=== PATIENT | female | born 1930 | race Caucasian/White ===

== ENCOUNTER 2019-04-02 22:14 | Emergency (ER) | payer MEDICARE, OTHER ==
--- NOTE | 2019-04-02 22:26 | ED ---
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 The patient states she was walking into her bedroom when she fell down on her carpet and landed on her left side. She states she was initially not walking properly. She states she was unable to lift her legs high enough to walk and when her legs collided due to this she fell. She states she normally has a difficult time ambulating. Now she reports pain in her left LLE. The patient rates her pain 5/10 in severity. - History of Current Complaint Chief Complaint: EDFall Stated Complaint: "FALL PER PT" Time Seen by Provider: 04/02/19 22:23 Hx Obtained From: Patient Loss of Consciousness: no loss of consciousness Onset/Duration: Started Hours Ago Onset of Pain: Hours Pain Intensity: 5 Pain Scale Used: 0-10 Numeric Location: Extremities - Allergy/Home Medications Allergies/Adverse Reactions: Allergies Allergy/AdvReac Type Severity Reaction Status Date / Time CHERRIES Allergy Hives Uncoded 04/02/19 22:19 Home Medications: Home Medications Acetaminophen [Tylophen] 1,000 mg PO Q6HR 04/02/19 [History Confirmed 04/02/19] Cholecalciferol (Vitamin D3) [Vitamin D3] 1,000 unit PO DAILY 04/02/19 [History Confirmed 04/02/19] PMH/Surg Hx/FS Hx/Imm Hx Endocrine/Hematology History: Denies: Hx Diabetes, Hx Unexplained Bleeding Cardiovascular History: Reports: Hx Congenital Heart Disease, Hx Coronary Artery Disease, Hx Deep Vein Thrombosis - 2009 POST SURGERY, Hx Hypertension, Hx Valvular Heart Disease, Other Cardiovascular Problems/Disorders - Aortic Regurgitation, Mitral Regurgitation Denies: Hx Aneurysm, Hx Angina, Hx Angioplasty, Hx Auto Implanted Cardiovert Defib, Hx Cardiac Arrest, Hx Cardiomegaly, Hx Congestive Heart Failure, Hx Hypercholesterolemia, Hx Hypotension, Hx Pacemaker/ICD, Hx Peripheral Vascular Disease, Hx Rheumatic Fever, Hx Syncope GI History: Reports: Hx Gastroesophageal Reflux Disease Denies: Hx Cirrhosis, Hx Crohn's Disease, Hx Diverticulosis, Hx Gall Bladder Disease, Hx Gastrointestinal Bleed, Hx Hiatal Hernia, Hx Irritable Bowel, Hx Jaundice, Hx Obstructive Bowel, Hx Ileostomy, Hx Pyloric Stenosis, Hx Ulcer, Other GI Disorders Musculoskeletal History: Reports: Hx Arthritis - EVERYWHERE, Hx Back Problems - Chronic back pain, Hx Orthopedic Injury - BROKE HIP[, Hx Osteoporosis - THRU OUT , Other Musculoskeletal History - LEFT HIP AND LEFT KNEE SURGERY- DVT POST HIP SURGERY 2008 Denies: Hx Bursitis, Hx Congenital Bone Abnormalities, Hx Fibromyalgia, Hx Gout, Hx Scoliosis, Hx Tendonitis Sensory History: Reports: Hx Cataracts, Hx Contacts or Glasses, Hx Hearing Aid, Hx Hearing Problem Denies: Hx Eye Injury, Hx Eye Prosthesis, Hx Glaucoma, Hx Macular Degeneration, Hx Vision Problem, Hx Deafness, Other Sensory Impairments Opthamlomology History: Reports: Hx Cataracts, Hx Contacts or Glasses Denies: Hx Eye Injury, Hx Eye Prosthesis, Hx Glaucoma, Hx Macular Degeneration, Hx Vision Problem, Other Sensory Impairments Neurological History: Denies: Hx Dementia, Hx Developmental Delay, Hx Headaches, Hx Migraine, Hx Seizures, Hx Spinal Cord Injury, Hx Transient Ischemic Attacks (TIA), Other Neuro Impairments/Disorders - Surgical History Surgery Procedure, Year, and Place: LEFT HIP, CARDIAC aortic valve replacement, appendectomy, Hx Anesthesia Reactions: No Infectious Disease History: No Infectious Disease History: Reports: Hx Shingles - ten years ago Denies: Hx Clostridium Difficile, Hx Hepatitis, Hx Human Immunodeficiency Virus (HIV), Hx Tuberculosis, Traveled Outside the [place] in Last 30 Days - Family History Known Family History: Negative: Diabetes - Social History Alcohol Use: Rare Substance Use Type: Reports: None Hx Tobacco Use: Yes Smoking Status (MU): Former Smoker Have You Smoked in the Last Year: No Review of Systems Negative: Fever Positive: Other - LLE pain. All Other Systems Reviewed And Are Negative: Yes Physical Exam - Summary Physical Exam Summary: VITAL SIGNS: Reviewed. GENERAL: Patient is a well-developed and nourished FEMALE who is lying comfortable in the stretcher. Patient is not in any acute respiratory distress. HEAD AND FACE: No signs of trauma. No ecchymosis, hematomas or skull depressions. No sinus tenderness. EYES: PERRLA, EOMI x 2, No injected conjunctiva, no nystagmus. EARS: Hearing grossly intact. Ear canals and tympanic membranes are within normal limits. MOUTH: Oropharynx within normal limits. NECK: Supple, trachea is midline, no adenopathy, no JVD, no carotid bruit, no c- spine tenderness, neck with full ROM. CHEST: Symmetric, no tenderness at palpation LUNGS: Clear to auscultation bilaterally. No wheezing or crackles. CVS: Regular rate and rhythm, S1 and S2 present, no murmurs or gallops appreciated. ABDOMEN: Soft, non-tender. No signs of distention. No rebound no guarding, and no masses palpated. Bowel sounds are normal. EXTREMITIES: FROM in all major joints, no edema, no cyanosis or clubbing. Tenderness over the left upper thigh. NEURO: Alert and oriented x 3. No acute neurological deficits. Speech is normal and follows commands. SKIN: Dry and warm Triage Information Reviewed: Yes Vital Signs On Initial Exam: Initial Vitals Temp Pulse Resp BP Pulse Ox 98.5 F 76 16 172/72 97 04/02/19 22:17 04/02/19 22:17 04/02/19 22:17 04/02/19 22:17 04/02/19 22:17 Vital Signs Reviewed: Yes Diagnostics - Vital Signs Vital Signs Temp Pulse Resp BP Pulse Ox 04/02/19 22:17 98.5 F 76 16 172/72 97 - Laboratory Lab Statement: Any lab studies that have been ordered have been reviewed, and results considered in the medical decision making process. - Radiology Hip/Pelvis XR Radiology Interpretation Completed By: ED Physician Summary of Radiographic Findings: No fractures seen. Pending offical radiologist report. Femur XR Radiology Interpretation Completed By: ED Physician Summary of Radiographic Findings: No fracture seen. Pending official radiologist report. 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 XRs on left femur, hip, and pelvis revealed no fractures. Patient ambulated with walker. Patient states she does not want a prescription for pain. A plan for discharge was discussed with the patient and she was agreeable with this plan. - Diagnoses Provider Diagnoses: Left hip pain Discharge - Sign-Out/Discharge Documenting (check all that apply): Patient Departure - Discharge Patient Received Moderate/Deep Sedation with Procedure: No - Discharge Plan Condition: Stable Disposition: HOME Patient Education Materials: Hip Pain (ED) Referrals: Chloe Blevins MD [Primary Care Provider] - Additional Instructions: Return to ED with any new or worsening symptoms. - Attestation Statements Document Initiated by Scribe: Yes Documenting Scribe: Kyler Rai Provider For Whom Scribe is Documenting (Include Credential): Obdulia Campoverde MD Scribe Attestation: Kyler Liu, scribed for Obdulia Campoverde MD on 04/03/19 at 0044. Status of Scribe Document: Ready
[2019-04-03 01:01] VITALS: BP 133/69
== END 2019-04-03 01:00 | disposition home or self-care (01) ==
LOC: ED 22:14
DX: M25.552 Pain in left hip (principal); I25.10 Atherosclerotic heart disease of native coronary artery without angina pectoris; Z87.891 Personal history of nicotine dependence; W19.XXXA Unspecified fall, initial encounter; S72.142S Displaced intertrochanteric fracture of left femur, sequela
CPT/HCPCS: 99283

== ENCOUNTER 2019-10-01 12:05 | Inpatient (IN) | payer MEDICARE, OTHER ==
[2019-10-01] MEDS ORDERED: HYDROcodone/ACETAMIN 5-325 MG* 1 TAB PO ONE (12:20)
--- NOTE | 2019-10-01 12:22 | ED ---
Back Pain - HPI Summary HPI Summary: This patient is an 89 year old female presenting to [facility] with a chief complaint of back pain after a fall. The patient states she fell three days ago and did not have lower back pain but only mild right-sided. She states she fell in the bathroom when she was trying to get dressed and fell backwards. She says she hit the tub with her right side. She states she is having difficulty walking , bending down, and putting socks on. The patient states she takes aspirin daily. - History of Current Complaint Chief Complaint: EDBackInjuryPain Stated Complaint: INJURIES FROM FALL PER SON Time Seen by Provider: 10/01/19 12:12 Hx Obtained From: Patient Onset/Duration: Lasting Hours Pain Intensity: 9 Pain Scale Used: 0-10 Numeric - Allergies/Home Medications Allergies/Adverse Reactions: Allergies Allergy/AdvReac Type Severity Reaction Status Date / Time CHERRIES Allergy Hives Uncoded 10/01/19 12:09 PMH/Surg Hx/FS Hx/Imm Hx Endocrine/Hematology History: Denies: Hx Diabetes, Hx Unexplained Bleeding Cardiovascular History: Reports: Hx Congenital Heart Disease, Hx Coronary Artery Disease, Hx Deep Vein Thrombosis - 2010 POST SURGERY, Hx Hypertension, Hx Valvular Heart Disease, Other Cardiovascular Problems/Disorders - Aortic Regurgitation, Mitral Regurgitation Denies: Hx Aneurysm, Hx Angina, Hx Angioplasty, Hx Auto Implanted Cardiovert Defib, Hx Cardiac Arrest, Hx Cardiomegaly, Hx Congestive Heart Failure, Hx Hypercholesterolemia, Hx Hypotension, Hx Pacemaker/ICD, Hx Peripheral Vascular Disease, Hx Rheumatic Fever, Hx Syncope GI History: Reports: Hx Gastroesophageal Reflux Disease Denies: Hx Cirrhosis, Hx Crohn's Disease, Hx Diverticulosis, Hx Gall Bladder Disease, Hx Gastrointestinal Bleed, Hx Hiatal Hernia, Hx Irritable Bowel, Hx Jaundice, Hx Obstructive Bowel, Hx Ileostomy, Hx Pyloric Stenosis, Hx Ulcer, Other GI Disorders Musculoskeletal History: Reports: Hx Arthritis - EVERYWHERE, Hx Back Problems - Chronic back pain, Hx Orthopedic Injury - BROKE HIP[, Hx Osteoporosis - THRU OUT , Other Musculoskeletal History - LEFT HIP AND LEFT KNEE SURGERY- DVT POST HIP SURGERY 2008 Denies: Hx Bursitis, Hx Congenital Bone Abnormalities, Hx Fibromyalgia, Hx Gout, Hx Scoliosis, Hx Tendonitis Sensory History: Reports: Hx Cataracts, Hx Contacts or Glasses, Hx Hearing Aid, Hx Hearing Problem Denies: Hx Eye Injury, Hx Eye Prosthesis, Hx Glaucoma, Hx Macular Degeneration, Hx Vision Problem, Hx Deafness, Other Sensory Impairments Opthamlomology History: Reports: Hx Cataracts, Hx Contacts or Glasses Denies: Hx Eye Injury, Hx Eye Prosthesis, Hx Glaucoma, Hx Macular Degeneration, Hx Vision Problem, Other Sensory Impairments Neurological History: Denies: Hx Dementia, Hx Developmental Delay, Hx Headaches, Hx Migraine, Hx Seizures, Hx Spinal Cord Injury, Hx Transient Ischemic Attacks (TIA), Other Neuro Impairments/Disorders - Surgical History Surgery Procedure, Year, and Place: LEFT HIP, CARDIAC aortic valve replacement, appendectomy, Hx Anesthesia Reactions: No Infectious Disease History: No Infectious Disease History: Reports: Hx Shingles - ten years ago Denies: Hx Clostridium Difficile, Hx Hepatitis, Hx Human Immunodeficiency Virus (HIV), Hx Tuberculosis, Traveled Outside the [place] in Last 30 Days - Family History Known Family History: Negative: Diabetes - Social History Alcohol Use: Rare Substance Use Type: Reports: None Hx Tobacco Use: Yes Smoking Status (MU): Former Smoker Have You Smoked in the Last Year: No Review of Systems Negative: Fever Positive: Other - Back pain All Other Systems Reviewed And Are Negative: Yes Physical Exam - Summary Physical Exam Summary: Appearance: The patient is well-nourished in no acute distress and in no acute pain. Skin: The skin is warm and dry, and skin color reflects adequate perfusion. HEENT: The head is normocephalic and atraumatic. The pupils are equal and reactive. The conjunctivae are clear and without drainage. Nares are patent and without drainage. Mouth reveals moist mucous membranes, and the throat is without erythema and exudate. The external ears are intact. The ear canals are patent and without drainage. The tympanic membranes are intact. Neck: The neck is supple with full range of motion and non-tender. There are no carotid bruits. There is no neck vein distension. Respiratory: Chest is non-tender. Lungs are clear to auscultation and breath sounds are symmetrical and equal. Cardiovascular: Heart is regular rate and rhythm. There is no murmur or rub auscultated. There is no peripheral edema and pulses are symmetrical and equal. Abdomen: The abdomen is soft and non-tender. There are normal bowel sounds heard in all four quadrants and there is no organomegaly palpated. Musculoskeletal: There is no back tenderness noted. Extremities are non-tender with full range of motion. There is good capillary refill. There is no peripheral edema or calf tenderness elicited. Neurological: Patient is alert and oriented to person, place and time. The patient has symmetrical motor strength in all four extremities. Cranial nerves are grossly intact. Deep tendon reflexes are symmetrical and equal in all four extremities. Psychiatric: The patient has an appropriate affect and does not exhibit any anxiety or depression. Triage Information Reviewed: Yes Vital Signs On Initial Exam: Initial Vitals Temp Pulse Resp BP Pulse Ox 99.0 F 87 16 140/86 99 10/01/19 12:06 10/01/19 12:06 10/01/19 12:06 10/01/19 12:06 10/01/19 12:06 Vital Signs Reviewed: Yes Procedures - Sedation Patient Received Moderate/Deep Sedation with Procedure: No Diagnostics - Vital Signs Vital Signs Temp Pulse Resp BP Pulse Ox 10/01/19 12:06 99.0 F 87 16 140/86 99 - Laboratory Lab Statement: Any lab studies that have been ordered have been reviewed, and results considered in the medical decision making process. - CT Lumbar CT Interpretation Completed By: Radiologist Summary of CT Findings: 1. CT findings are consistent with L4 superior vertebral body compression frcature that is new since 03/23/2012 MRI. The posterior superior corner endplate of the vertebral body abuts the ventral spinal cord which might be exacerbating the patient's spinal stenosis at this level. If it will influence clinical management of this patient, MRI could be obtained for superior characterization. 2. 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 3. Infrarenal abdominal aortic aneurysm measuring 3.4 cm in diameter, increased slightly from 03/23/2012 MRI. ED Provider has reviewed this report. Back Pain Course/Dx - Course Course Of Treatment: Ms. Case fell 2 days ago in her bathtub and hurt her back. Over that time is gotten more and more painful now she's having difficulty with her activities of daily living. Neurologically she was intact here and CT revealed a new compression fracture with some retropulsed fragments. I spoke with Dr. Fine who recommended admission to the hospital service. I spoke with Dr. Brown. - Diagnoses Provider Diagnoses: Fracture of lumbar spine Discharge ED - Sign-Out/Discharge Documenting (check all that apply): Patient Departure - Admission, accepted by Dr. Brown, Hospitalist. - Discharge Plan Condition: Stable Disposition: ADMITTED TO [facility] - Billing Disposition and Condition Condition: STABLE Disposition: Admitted to [facility] - Attestation Statements Document Initiated by Romie: Yes Documenting Scribe: Kyler Rai Provider For Whom Romie is Documenting (Include Credential): Edgar Burrows MD Scribe Attestation: Kyler Liu, scribed for Edgar Burrows MD on 10/01/19 at 2056. Scribe Documentation Reviewed: Yes Provider Attestation: The documentation as recorded by the kishoreibKyler argueta accurately reflects the service I personally performed and the decisions made by me, Edgar Burrows MD Status of Scribe Document: Viewed
--- OUTSIDE RECORDS SUMMARY | 2019-10-01 12:24 | XMS REPORT | Continuity of Care Document ---
:1930 External Reference #:[id number] Author Name Chloe Blevins MD Address [address] [place] [address] Care Team Providers Name Role Phone Chloe Blevins MD FACP - Care Team Information Heat Plant Specialist [phone] Internal Medicine Yoana Cobb - Orthopaedic Care Team Information [facility] Specialist Surgery Raj Brothers MD - Orthopaedic Care Team Information Heat Plant Specialist [phone] Surgery Adelaide Penn MD - Cardiovascular Care Team Information [facility] [employer] Specialist Disease James Yang MD - Cardiovascular Care Team Information Heat Plant Specialist [phone] Disease Shruti Rizo M.D. - Pediatric Care Team Information Heat Plant Specialist [phone] Dermatology [facility] Care Team Information [facility] Specialist Cty - Home Health Problems Active Problems Provider Date Degenerative joint disease involving multiple Chloe Blevins MD Onset: joints Osteoporosis Chloe Blevins MD Onset: 05/14/2009 Spinal stenosis of lumbar region Chloe Blevins MD Onset: 04/07/2012 Heart valve replacement Chloe Blevins MD Onset: 09/14/2015 Hyperparathyroidism Chloe Blevins MD Onset: 11/04/2016 Social History Type Date Description Comments Sex Unknown Tobacco Use Start: Unknown End: Former Cigarette Smoker Unknown Smoking Status Reviewed: 11/16/60 Former Cigarette Smoker ETOH Use 2000 Has consumed alcohol in the past Recreational Drug Use Never Used Drugs Tobacco Use Start: Unknown End: Patient is a former smoker Unknown Exercise Type/Frequency Does not exercise Exercise Limitations Back Pain Allergies, Adverse Reactions, Alerts Description No Known Drug Allergies Medications Active Medications SIG Qnty Indications Ordering Provider Date Aspirin Take 1 tablet by I48.0 Chloe Morley 12/04/2015 325mg Tablets mouth daily for MD Gen treatment to prevent blood clotting Z79.01 Ramipril Take 1 Capsule By 30caps I10 Chloe Blevins, 08/27/2015 5mg Capsules Mouth Every Day For Left-Sided Heart Failure I42.9 Metoprolol Tartrate Take 1 Tablet By 60tabs I42.9 Chloe Blevins, 08/27 25mg Mouth Two Times MD Tablets Daily I48.0 Acetaminophen 1-2 by mouth three M15.0 Chloe Blevins, 02/09/2013 500mg Tablets times a day as MD needed Vitamin D3 1 po qd 733.00 Chloe Blevins, 10/08/2009 1000Unit Tablets Medications Administered in Office Medication SIG Qnty Indications Ordering Provider Date Inject/Drain Arthrocentesis Chloe Blevins MD 03/21/2014 Major Joint/Bursa/Ganglion Cyst Injection Immunizations CPT Code Status Date Vaccine Reaction Lot # [id number] Given 08/03/2019 Influenza Vaccine [id number] Quadrivalent Preser/Antibiotic Free Im Use 27734 Given 08/24/2018 Influenza Virus Vaccine, [id number] Quadrivalent (Cciiv4), Derived From Cell 00599 Given 07/28/2017 Influenza Vaccine Not Specified Administered Age 3 And Older 83203 Given 07/28/2017 Influenza Virus Vaccine Split [id number] Virus Use For Individual 3Yr Older 91380 Given 08/26/2016 Influenza Virus Split 3 Yrs [id number] And Above For Intramuscular Use 75078 Given 07/31/2015 Influenza Virus Split 3 Yrs [place] And Above For Intramuscular Use 00913 Given 07/31/2014 Influenza Virus Split 3 Yrs [id number] Flu Vacc And Above For Intramuscular Use 38116 Given 08/04/2013 Influenza Virus Split 3 Yrs FLU [id number] And Above For Intramuscular Use 65241 Given 08/11/2012 Influenza Virus Split 3 Yrs FLU [id number] And Above For Intramuscular Use 37491 Given 12/24/2011 Pneumococcal Vaccine 2Yrs Or PNEUMO [id number] Older 53151 Given 08/20/2011 Influenza Virus Split 3 Yrs FLU [id number] And Above For Intramuscular Use 40515 Given 10/09/2010 Tdap-Tetanus, Diphtheria TDAP [id number] Toxoids/Acellular Pertussis Vaccine 7+ 00044 Given 09/04/2010 Influenza Virus Split 3 Yrs FLU [id number] And Above For Intramuscular Use 69129 Given 09/04/2009 Influenza Virus Split 3 Yrs And Above For Intramuscular Use 75516 Given 12/05/2007 Influenza Virus Vaccine Split Virus Use For Individual 3Yr Older 62187 Given 03/19/2000 Pneumococcal Vaccine 2Yrs Or Older 06552 Given 03/19/2000 Tetanus Preservative Free For Use In Individuals 7 Yrs Or Older Vital Signs Date Vital Result Comment 08/03/2019 12:54pm Body Temperature 97.6 F O2 % BldC Oximetry 97 % Heart Rate 60 /min BP Systolic 140 mmHg BP Diastolic 80 mmHg BMI (Body Mass Index) 27.6 kg/m2 Weight 171.00 lb Height 66 inches 5'6" 02/23/2019 1:00pm Heart Rate 66 /min BP Systolic 135 mmHg BP Diastolic 80 mmHg Weight 167.00 lb Results Test Date Facility Test Result H/L Range Note CBC No Diff 07/25/2019 [facility] White Blood 6.6 10^3/uL Normal 3.5-10.8 [place] [address] Count [phone] Red Blood Count 4.59 10^6/uL Normal 3.70-4.87 Hemoglobin 13.3 g/dL Normal 12.0-16.0 Hematocrit 41 % Normal 35-47 Mean Corpuscular Volume 88 fL Normal 80-97 Mean Corpuscular Hemoglobin 29 pg Normal 27-31 Mean Corpuscular HGB Conc 33 g/dL Normal 31-36 Red Cell Distribution Width 15 % Normal 10-15 Platelet Count 671 10^3/uL High 150-450 Mean Platelet Volume 9.1 fL Normal 7.4-10.4 Comp Metabolic 07/25/2019 [facility] Sodium 140 mmol/L Normal 135-145 [place] [address] [phone] Potassium 5.0 mmol/L Normal 3.5-5.0 Chloride 108 mmol/L Normal 101-111 Co2 Carbon Dioxide 29 mmol/L Normal 22-32 Anion Gap 3 mmol/L Normal 2-11 Glucose 93 mg/dL Normal 70-100 Blood Urea Nitrogen 29 mg/dL High 6-24 Creatinine 0.95 mg/dL Normal 0.51-0.95 BUN/Creatinine Ratio 30.5 High 8-20 Calcium 11.0 mg/dL High 8.6-10.3 Total Protein 6.6 g/dL Normal 6.4-8.9 Albumin 4.1 g/dL Normal 3.2-5.2 Globulin 2.5 g/dL Normal 2-4 Albumin/Globulin Ratio 1.6 Normal 1-3 Total Bilirubin 0.60 mg/dL Normal 0.2-1.0 Alkaline Phosphatase 91 U/L Normal 34-104 Alt 12 U/L Normal 7-52 Ast 19 U/L Normal 13-39 Egfr Non- 55.6 >60 Egfr 67.3 >60 1 Pthi 07/25/2019 [facility] Calcium (PTH Intact) 10.9 mg/dL High 8.6-10.3 [place], [place] [id number] [phone] PTH Intact 96.9 pg/mL High 12-88 Xray 04/18/2019 [facility] Knee, Complete, 4 Or More Views, Mild OA [address] [place] [address] [phone] Tibia & Fibula, Two Views, LT No fracture Basic Metabolic 02/15/2019 [facility] Sodium 141 mmol/L Normal 135-145 [place] [address] [phone] Potassium 4.9 mmol/L Normal 3.5-5.0 Chloride 107 mmol/L Normal 101-111 Co2 Carbon Dioxide 28 mmol/L Normal 22-32 Anion Gap 6 mmol/L Normal 2-11 Glucose 89 mg/dL Normal 70-100 Blood Urea Nitrogen 25 mg/dL High 6-24 Creatinine 0.93 mg/dL Normal 0.51-0.95 BUN/Creatinine Ratio 26.9 High 8-20 Calcium 10.9 mg/dL High 8.6-10.3 Egfr Non- 57.2 >60 Egfr 69.2 >60 2 Pthi 02/15/2019 [facility] Calcium (PTH Intact) 10.9 mg/dL High 8.6-10.3 [place] [address] [phone] PTH Intact 85.7 pg/mL Normal 12-88 1 Because ethnic data is not always readily available, this report includes an eGFR for both -Americans and non- Americans. The National Kidney Disease Education Program (NKDEP) does not endorse the use of the MDRD equation for patients that are not between the ages of 18 and 70, are , have extremes of body size, muscle mass, or nutritional status, or are non- or non-. According to the National Kidney Foundation, irrespective of diagnosis, the stage of the disease is based on the level of kidney function: Stage Description GFR(mL/min/1.73 m(2)) 1 Kidney damage with normal or decreased GFR 90 2 Kidney damage with mild decrease in GFR 60-89 3 Moderate decrease in GFR 30-59 4 Severe decrease in GFR 15-29 5 Kidney failure <15 (or dialysis) 2 Because ethnic data is not always readily available, this report includes an eGFR for both -Americans and non- Americans. The National Kidney Disease Education Program (NKDEP) does not endorse the use of the MDRD equation for patients that are not between the ages of 18 and 70, are , have extremes of body size, muscle mass, or nutritional status, or are non- or non-. According to the National Kidney Foundation, irrespective of diagnosis, the stage of the disease is based on the level of kidney function: Stage Description GFR(mL/min/1.73 m(2)) 1 Kidney damage with normal or decreased GFR 90 2 Kidney damage with mild decrease in GFR 60-89 3 Moderate decrease in GFR 30-59 4 Severe decrease in GFR 15-29 5 Kidney failure <15 (or dialysis) Procedures Date Code Description Status 09/23/2010 255085241 Bone Mineral Density Test Completed 05/04/2009 [id number] Mammogram Completed 04/27/2009 [id number] Bone Mineral Density Test Completed 01/27/2008 [id number] Mammogram Completed 09/30/2006 [id number] Mammogram Completed 09/30/2005 [id number] Mammogram Completed Medical Devices Description No Information Available Encounters Type Date Location Provider Dx Diagnosis Office Visit 08/03/2019 Main Office Corona A Wattoo, Z00.01 Encounter for 1:00p general adult medical exam w abnormal findings M48.061 Spinal stenosis, lumbar region without neurogenic merry M15.0 Primary generalized (osteo)arthritis E21.3 Hyperparathyroidism, unspecified I10 Essential (primary) hypertension Office Visit 04/18/2019 1:00p Main Office Chloe Blevins, M25.562 Pain in left MD knee M79.662 Pain in left lower leg M15.0 Primary generalized (osteo)arthritis Z91.81 History of falling Office Visit 02/23/2019 1:00p Main Office Chloe Sheehan0 Essential ( primary) MD Gen hypertension M15.0 Primary generalized (osteo)arthritis M48.061 Spinal stenosis, lumbar region without neurogenic merry E21.3 Hyperparathyroidism, unspecified Assessments Date Code Description Provider 08/03/2019 Z00.01 Encounter for general adult medical Chloe Blevins MD examination with abnormal findings 08/03/2019 M48.061 Spinal stenosis, lumbar region without Chloe Blevins MD neurogenic claudicati 08/03/2019 M15.0 Primary generalized (osteo)arthritis Chloe Blevins MD 08/03/2019 E21.3 Hyperparathyroidism, unspecified Chloe Blevins MD 08/03/2019 I10 Essential (primary) hypertension Chloe Blevins MD 04/18/2019 M25.562 Pain in left knee Chloe Blevins MD 04/18/2019 M79.662 Pain in left lower leg Chloe Blevins MD 04/18/2019 M15.0 Primary generalized (osteo)arthritis Chloe Blevins MD 04/18/2019 Z91.81 History of falling Chloe Blevins MD 02/23/2019 I10 Essential (primary) hypertension Chloe Blevins MD 02/23/2019 M15.0 Primary generalized (osteo)arthritis Chloe Blevins MD 02/23/2019 M48.061 Spinal stenosis, lumbar region without Chloe Blevins MD neurogenic claudicati 02/23/2019 E21.3 Hyperparathyroidism, unspecified Corona A Wattoo, MD Plan of Treatment Future Appointment(s):02/01/2020 1:00 pm - Chloe Blevins MD at Main [id number]/03/2019 - Chloe Blevins MDZ00.01 Encounter for general adult medical examination with abnormal findingsComments:Age, sex and risk appropriate preventive care recommendations discussed with patient. Physical findings discussed in detail.Patient verbalized understanding. Fall prevention d/w in detail. Stable and asymptomatic.Medications related potential side effects, general precautions, follow up recommendations discussed with patient in detail. Patient verbalized understanding.M48.061 Spinal stenosis, lumbar region without neurogenic twuezhemdpC53.0 Primary generalized (osteo)wupzczalaZ07.3 Hyperparathyroidism, ewjdkuqqnjoL17 Essential (primary) hypertension Functional Status Functional Condition Comment Date Status Standard cane is used with the right hand to ambulate 04/25/2009 Active Hearing Aid in Both ears Active Mental Status Description No Information Available Referrals Refer to Reason for Referral Status Appt Date [facility] Closed [address] [place] [address] [phone]
[2019-10-01] MEDS ORDERED: Magnesium Hydroxide LIQ* 30 ML UDC PO PRN (16:42)
[2019-10-01] MEDS ORDERED: oxyCODONE/Acetamin 5/325 MG* TAB PO PRN (16:42)
[2019-10-01] MEDS ORDERED: Acetaminophen TAB* 325 MG PO PRN (16:47)
--- NOTE | 2019-10-01 19:17 | HP ---
CC: Dr. Blevins; Dr. Adelaide Penn; Dr. Fine * ADMISSION HISTORY AND PHYSICAL: DATE OF ADMISSION: 10/01/19 PRIMARY CARE PROVIDER: Dr. Blevins. PRIMARY INSECTICIDE MAKER: Dr. Adelaide Penn. NEUROSURGERY: Dr. Fine. ATTENDING FOR THIS ADMISSION: Dr. Jesse Brown.* (DICTATED BY KAVON GUALLPA NP) CHIEF COMPLAINT: Fall with intractable back pain and inability to ambulate. HISTORY OF PRESENT ILLNESS: Ms. Case is a very pleasant 89-year-old female with history of arthritis, aortic valve replacement and hypertension that presents to the emergency department today with complaints of fall in her bathroom 3 days ago. The patient and her son state that 3 days ago she was in bathroom and getting dressed, she was trying to put on the turtleneck and somehow got tied up in her shirt. She became unbalanced and fell backwards on to a bath chair that was in the tub, striking her lower back and lateral portion of her lumbar spine on the right side. The patient at that time needed some assistance getting back up. Her son was available to provide this assistance. She does not have any loss of consciousness. Did not strike her head. Did not have any difficulty ambulating at that time. Did not complain of any numbness, tingling or any other neurologic deficits after her fall. The patient, with some assistance from her son, was able to finish getting dressed and was seated shortly thereafter, took some Tylenol and did not have any further complaints that day. However, progressively over the last 3 days, she began to have intractable pain across the lower back and radiating down her legs. Normally, the patient can ambulate with the walker without difficulty; however, she has gotten to the point where she cannot ambulate at all. She is having difficulty bearing weight. She could not change positions. She says in particular getting up out of a chair to standing position is impossible and it has gotten to the point where the patient now cannot ambulate at all without being in excruciating pain. The patient was brought to the emergency department for evaluation where she underwent imaging. In the ED, she did receive a CT of the lumbar spine. Lumbar spine imaging does show a new fracture of the L4 vertebra. There is a compression fracture which is new of the vertebral body at L4. The posterior superior corner endplate of the vertebral body abuts the ventral spinal cord which appears to be exacerbating the patient's preexisting spinal stenosis at this level. The patient does appear to have some preexisting degenerative disk disease and spinal stenosis. There is noted multilevel spinal stenosis and broad- based intervertebral disk protrusion and facet arthropathy and thickening most severe at L3-L4. It does appear that this current fracture is in the specific area where her current stenotic disease is located. The patient did receive narcotic pain medication in the emergency department and ED has reached out to Neurosurgery who recommends MRI and bedrest. Hospitalists had been requested to evaluate the patient for admission. PAST MEDICAL HISTORY: Significant for aortic valvular disease, osteoarthritis, history of DVT and hypertension. PAST SURGICAL HISTORY: Significant for cholecystectomy; hip arthroplasty; knee surgery; aortic valve replacement x2 in 2011 and in 2014, this is bioprosthetic valve. HOME MEDICATIONS: Include: 1. Ramipril 5 mg q.h.s. 2. Metoprolol tartrate 25 mg b.i.d. 3. Vitamin D3 1000 units daily. 4. Aspirin 325 mg p.o. daily. 5. Tylenol 500 mg p.o. p.r.n. pain. ALLERGIES: The patient has no known drug allergies. 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 FAMILY HISTORY: Negative for diabetes or heart disease. Negative for any cancers or other chronic diseases. SOCIAL HISTORY: The patient has a very remote history of smoking greater than 60 years ago. She drinks wine only occasionally. Denies any illicit drug use and does live with her son, Rayray Britton, phone number is [phone] who is her healthcare proxy. CODE STATUS: She is a full code. REVIEW OF SYSTEMS: The patient states while lying still, she is not in pain; however, with any movement or ambulation, she does have an 8/10 pain. She is unable to ambulate at this time. She denies any fever or chills. No dizziness. No acute shortness of breath or chest pain. No nausea. No vomiting. No abdominal pain. No urinary complaints. She does endorse some radiating pain down the legs, but no further constitutional complaints. PHYSICAL EXAMINATION GENERAL: The patient is well appearing, well nourished, in no acute distress. VITAL SIGNS: Blood pressure 156/68, heart rate 63, respiratory rate 16, O2 saturation 97% on room air, temperature of 99.0. HEENT: The patient is atraumatic, normocephalic. PERRLA. Nonicteric sclerae. Oral mucosa is moist. Tongue is midline. NECK: Supple, nontender. No JVD noted. No carotid bruits auscultated. LUNGS: Clear bilaterally to auscultation with no wheezing, rhonchi, or rales. CARDIOVASCULAR: S1, S2 present. No murmurs, gallops, or rubs noted. Rate and rhythm are regular. ABDOMEN: Soft, nontender, nondistended. Positive bowel sounds in all 4 quadrants. : Deferred. MUSCULOSKELETAL: There is no clubbing, no cyanosis. She does have bilateral lower extremity and ankle edema. +1 nonpitting. She does have some tenderness of the lower extremities to palpation. She has +2 distal pulses palpable. Full range of motion. Gross motor and sensation are intact. NEUROLOGIC: Grossly intact with no focal deficits. PSYCHIATRIC: She is cooperative and appropriate. DIAGNOSTIC STUDIES/LAB DATA: No laboratories are currently available. Imaging: CAT scan of the lumbar spine as noted in the body of this document above. IMPRESSION: Ms. Case is an 89-year-old female patient with minimal medical history that presents today after a fall, found to have an acute compression fracture of the L4 vertebral body with retropulsion. PLAN: The patient has been admitted to observation. DIAGNOSES: 1. Acute L4 compression fracture with retropulsion. Neurosurgery has been contacted by Dr. Burrows in the emergency department. Dr. Fine recommends MRI and bedrest. At this time, it is unclear if the retropulsion will cause any further instability. We will have to obtain the MRI to determine if the patient would be a surgical candidate or not, this has been explained to the patient and they are in agreement. In the meantime, the patient should have bedrest. I will order Percocet 1 tablet q.4 hours as needed for pain. She should be using a bedpan for toileting. I will order PT and OT; however, this will not be able to be completed until after her MRI and her evaluation by Neurosurgery. I will order basic labs, CBC and a BMP to ensure she has no electrolyte disturbances or anemia. 2. History of hypertension. She is normotensive, on ramipril and metoprolol, these will be continued. 3. History of aortic valve replacement. The patient follows with Dr. Penn. She is not currently complaining of any chest pains or any respiratory complaints. She could follow up with Dr. Penn as an outpatient. If she would need surgical intervention, we would obtain cardiology consult with Dr. Penn or one of her partners. 4. History of arthritis. The patient normally takes Tylenol. She cannot take either Tylenol or narcotic pain medication for her acute pain at this time. 5. Fluids, electrolytes, and nutrition: The patient can have a heart healthy diet, caffeine okay as tolerated. 6. DVT prophylaxis: The patient is high risk with a score of 4. She has had deep vein thrombosis in the past after having hip surgery. Normally, she takes aspirin 324 mg daily, this will be held at this time and she will receive Lovenox 40 mg subcu q.24 hours, first dose to begin this evening. Again, she is high risk for DVT given current status and bedrest. 7. Code status: Full code. 8. Disposition: The patient is admitted to observation. The rest of the patient's course will be determined by further diagnostics, laboratories, and any other input from other providers as warranted during this admission. TIME SPENT: 60 minutes on admission planning, greater than 50% has been spent at the bedside and [id number]-[id number] physical examination of the patient and also developing plan of care with the patient and other providers involved in this patient's plan of care. KAVON GUALLPA NP [id number]/[facility] #: [id number] QUIQUE
[2019-10-01] MEDS: Metoprolol Tartrate TAB* 25 MG PO SCH (19:43)
[2019-10-01] MEDS: Docusate CAP* 100 MG PO SCH (19:43)
[2019-10-01] MEDS: Ramipril CAP* 5 MG PO SCH (19:43)
[2019-10-01] MEDS: Enoxaparin(*) 40 MG/0.4 ML SYR SUBCUT SCH (19:43)
[2019-10-02 05:27] LABS: ABS Basophils 0.1 10^3/ul (0-0.2); ABS Eosinophils 0.1 10^3/ul (0-0.6); ABS Lymphocytes 2.2 10^3/ul (1.0-4.8); ABS Monocytes 0.7 10^3/ul (0-0.8); ABS Neutrophils 3.1 10^3/ul (1.5-7.7); Eosinophil % 1.6 %; Hematocrit 36 % (35-47); Lymphocyte % 35.7 %; Mean Corpuscular HGB Conc 34 g/dL (31-36); Mean Corpuscular Hemoglobin 29 pg (27-31); Mean Corpuscular Volume 87 fL (80-97); Mean Platelet Volume 8.2 fL (7.4-10.4); Platelet Count 730 10^3/uL (150-450); Red Blood Count 4.08 10^6 /uL (3.70-4.87); Red Cell Distribution Width 15 % (10-15); White Blood Count 6.2 10^3/uL (3.5-10.8)
[2019-10-02 05:40] LABS: BUN/Creatinine Ratio 34.5 (8-20); Calcium 10.1 mg/dL (8.6-10.3); EGFR African American 77.6 (>60); EGFR Non-African American 64.1 (>60); Potassium 4.3 mmol/L (3.5-5.0)
--- NOTE | 2019-10-02 08:59 | PN ---
Subjective Date of Service: 10/02/19 Interval History: Patient seen and examined. States her pain when not moving is 2/10, however being on bedrest she cannot evaluate what her pain is now. She is log rolling for bedpan, but would like to try sitting up in a chair, but explained that she must have MRI and consult with neurosurgery first before we attempt any additional movement. She denies any SOB, no chest pain, no fevers or chills. States the swelling in her ankles does seem improved. Pain down her legs is improved, denies calf tenderness. Objective Active Medications: Acetaminophen (Tylenol Tab*) 650 mg PO Q6H PRN PRN Reason: MILD PAIN or TEMP > 100.4 Cholecalciferol (Vitamin D Tab*) 1,000 units PO DAILY [facility] Docusate Sodium (Colace Cap*) 100 mg PO BID [facility] Last Admin: 10/01/19 19:43 Dose: 100 mg Enoxaparin Sodium (Lovenox(*)) 40 mg SUBCUT Q24H [facility] Last Admin: 10/01/19 19:43 Dose: 40 mg Magnesium Hydroxide (Milk Of [employer] Liq*) 30 ml PO Q4H PRN PRN Reason: CONSTIPATION Metoprolol Tartrate (Lopressor Tab*) 25 mg PO BID [facility] Last Admin: 10/01/19 19:43 Dose: 25 mg Oxycodone/Acetaminophen (Percocet 5/325 Tab*) 1 tab PO Q4H PRN PRN Reason: PAIN - MODERATE Ramipril (Altace Cap*) 5 mg PO BEDTIME [facility] Last Admin: 10/01/19 19:43 Dose: 5 mg Vital Signs - 8 hr 10/02/19 03:12 Pulse Rate 81 Respiratory 16 Rate Blood Pressure 120/51 (mmHg) O2 Sat by Pulse 91 Oximetry Oxygen Devices in Use Now: None Appearance: alert, NAD Eyes: PERRLA Ears/Nose/Mouth/Throat: Mucous Membranes Moist Neck: NL Appearance and Movements; NL JVP Respiratory: Symmetrical Chest Expansion and Respiratory Effort, Clear to Auscultation Cardiovascular: NL Sounds; No Murmurs; No JVD, RRR Abdominal: NL Sounds; No Tenderness; No Distention Extremities: - - right calf circumference >left, no tenderness Skin: No Rash or Ulcers Neurological: Alert and Oriented x 3, NL Sensation Nutrition: Taking PO's Result Diagrams: 10/02/19 05:16 10/02/19 05:16 Diagnostic Imaging: Patient Name: AIXA HANSEN Medical Record#: [id number] Ordering Physician: Edgar Burrows MD Acct.#: [id number] : 1930 Age: 89 Sex: F Location: EMERGENCY DEPARTMENT Exam Date: 10/01/19 1219 ADM Status: REG ER Order Information: CT SPINE LUMBAR W/O Accession Number: [id number] CPT: 41374 INDICATION: Low back pain since a fall 3 days earlier COMPARISON: MRI lumbar spine March 2012 TECHNIQUE: Contiguous axial sections were obtained beginning lower thoracic vertebra and continuing through the sacrum. Images were reconstructed in the sagittal and coronal planes. FINDINGS: Depicted well on the sagittal plane images, there is cortical discontinuity and loss of vertebral height involving the superior half of the L4 vertebral body. Fracture lines are visible on the axial plane images. Elsewhere there is loss of intervertebral disc height, marginal osteophyte formation and multilevel vacuum disc phenomenon. There is multilevel spinal stenosis due to broad-based intervertebral disc protrusion, facet arthropathy and thickening of the ligamentum flavum. This is most severe at L3/L4 perhaps exacerbated by the apparently fractured posterior superior endplate that abuts the ventral thecal sac (sagittal image 35 and axial image 58. Incidentally noted is coarse atherosclerotic calcification of the abdominal aorta and common iliac arteries. There is aneurysmal dilatation of the infrarenal abdominal aorta measuring 3.3 cm in greatest AP dimension. IMPRESSION: 1. CT findings are consistent with L4 superior vertebral body compression fracture that is new since the March 23, 2012 MRI. The posterior superior corner endplate of the vertebral body abuts the ventral spinal cord which mat be exacerbating the patient's spinal stenosis at this level. If it will influence clinical management of this patient, MRI could be obtained for superior characterization. 2. 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 3. Infrarenal abdominal aortic aneurysm measuring 3.4 cm in diameter, increased slightly from 3.2 cm on the March 23, 2012 MRI. . Assess/Plan/Problems-Billing Assessment: This is an 89 year old female with hx of HTN, arotic valve replacement and OA that presented to ED with complaints of intractable back pain and inability to ambulate after a fall in her bathroom 3 days prior. - Patient Problems (1) Traumatic compression fracture of L4 vertebra Code(s): S32.040A - WEDGE COMPRESSION FRACTURE OF FOURTH LUMBAR VERTEBRA, INIT SNOMED Code(s): 465652146 Comment: - With retropulsion, intractable back pain and inability to ambulate - Neurosurgery consult pending, initial recommendations are bedrest and MRI to further evaluate fracture - Pain control - PT/OT eval after eval by NS (2) HTN (hypertension) Code(s): I10 - ESSENTIAL (PRIMARY) HYPERTENSION SNOMED Code(s): 02664280 Comment: - Stable on raipril and metoprolol (3) History of aortic valve replacement Code(s): Z95.2 - PRESENCE OF PROSTHETIC HEART VALVE SNOMED Code(s): 7622019687073 Comment: - Bioprosthetic, no AC - Stable (4) History of DVT (deep vein thrombosis) Code(s): Z86.718 - PERSONAL HISTORY OF OTHER VENOUS THROMBOSIS AND EMBOLISM SNOMED Code(s): 202245580 Comment: - Takes full dose aspirin at home, holding and replaced with lovenox 40mg daily , high risk for DVT again now that she is on bedrest - Right calf is larger on exam which patient states is her baseline and she has no tenderness (5) Patient is full code Code(s): Z78.9 - OTHER SPECIFIED HEALTH STATUS SNOMED Code(s): 794635254 Status and Disposition: Observation pending MRI and NS consultation.
[2019-10-02] MEDS: Docusate CAP* 100 MG PO SCH ×2 (09:45→20:30)
[2019-10-02] MEDS: Metoprolol Tartrate TAB* 25 MG PO SCH ×2 (09:45→20:30)
[2019-10-02] MEDS: Cholecalciferol TAB* 1000 UNITS PO SCH (09:45)
--- NOTE | 2019-10-02 13:19 | CONS ---
CONSULTATION REPORT: DATE OF CONSULT: 10/01/19 HISTORY OF PRESENT ILLNESS: This is an 89-year-old female with complaint of acute low back pain status post mechanical fall 3 days ago. The patient reports attempting to get dress while sitting on a toilet fell backwards hitting her back on the bathtub. She denies hitting her head or any loss of consciousness. She had noticed progressive pain over the last couple of days after that increased with standing and walking. She denies any issues bladder or bowel incontinence or loss of sensation in the lower extremities. The patient was brought in to [facility] for evaluation and had a CT scan which showed a burst fracture at L4. Neurosurgery was consulted to evaluate the patient. Currently, the patient admits to having increased pain with standing and walking and movement. PAST MEDICAL HISTORY: Aortic valve replacement, hypertension, and DVT. MEDICATIONS: 1. Ramipril 5 mg p.o. at bedtime. 2. Metoprolol 75 mg p.o. b.i.d. 3. Vitamin D3 1000 units p.o. daily. 4. Aspirin 325 mg daily. 5. Tylenol 1000 mg p.o. q.6 hours. PHYSICAL EXAM: Vital Signs: Temperature is 98.4, pulse rate 84, respiratory rate is 20, O2 saturation 95% on room air, blood pressure is 135/60. The patient is sitting upright in bed, comfortable, in no acute distress noted. Neuro: The patient is alert and oriented x3. Cranial nerves II through XII are grossly intact with no deficit. Upper extremity motor strength is 5/5 throughout. Lower extremity motor strength is 5/5 throughout. Has significant edema in the lower extremities. Sensation is intact throughout. DTRs 2+/4 bilaterally in upper and lower extremities. The patient has full range of motion with flexion of cervical spine as well as lateral movement. Has free range of motion of cervical spine without pain. No tenderness to palpation with cervical and thoracic spine. There was tenderness with palpation of lumbar spine. ASSESSMENT: An 89-year-old female with acute low back pain, status post mechanical fall, has a burst fracture at L4 with left posterior column retropulsion, possibly oriented to the spinal canal. The patient is neurologically intact with no focal deficits. PLAN: 1. Get an MRI of the lumbar spine to further evaluate stability of fracture of L4 compression fracture. 2. We would recommend additional imaging, probably CT scan of cervical and thoracic spine. Neurosurgery will follow up once imaging is complete. [id number]/[facility] #: [id number] MTDD
[2019-10-02] MEDS: Enoxaparin(*) 40 MG/0.4 ML SYR SUBCUT SCH (18:13)
--- NOTE | 2019-10-02 19:41 | PN ---
Progress Note - Progress Note Date of Service: 10/02/19 Note: Patient seen and examined. Please see consult by TONYA Brown for details. 89 yof reported fall. No LOC, No LOM. Patient denies neck or back pain. No known hx of lumbar fracture. Patient denies weakness, numbness, tingling of extremities, No incontinence. Lives alone. AAOx3 DIXON , CN II-XII grossly intact, Hearing decreased at baseline Motor 5/5 No pronator drift Sensory grossly intact to light touch NTTP C/T/L spine FROM c spine MRI reveals L4 AO type A3 /acute/subacute fractire. No evidence of PLC injury. CT minimal canal compromise. Would recommend imaging of C/T spine. Please see consult. If C/T spine imagine reveals no fractures, would obtain TLSO brace and attempt upright XR of lumbar spine. If brace is tolerated well and no instability or deformity in XR, would consider conservative treatment with brace. Appreciate IM care. Keny Fine MD
[2019-10-02] MEDS: Ramipril CAP* 5 MG PO SCH (20:30)
[2019-10-03] MEDS: Metoprolol Tartrate TAB* 25 MG PO SCH ×2 (09:51→20:46)
[2019-10-03] MEDS: Cholecalciferol TAB* 1000 UNITS PO SCH (09:51)
[2019-10-03] MEDS: Docusate CAP* 100 MG PO SCH ×2 (09:51→20:46)
--- NOTE | 2019-10-03 17:04 | PN ---
Subjective Date of Service: 10/03/19 Interval History: Patient seen and examined. States she had a bad night. Difficulty getting on bed gonzalez and then became disoriented and tried to get OOB. Realized this morning that she was very tired and thought she was home and was trying to go the the bathroom. At rest, she is not having pain but states pain was extremely bad whil trying to get on the bed gonzalez last night and she was afraid with all the movement that she would further displace the fracture. She denies numbness or tingling, no SOB, no chest pain, no calf pain. Objective Active Medications: Acetaminophen (Tylenol Tab*) 650 mg PO Q6H PRN PRN Reason: MILD PAIN or TEMP > 100.4 Cholecalciferol (Vitamin D Tab*) 1,000 units PO DAILY [facility] Last Admin: 10/03/19 09:51 Dose: 1,000 units Docusate Sodium (Colace Cap*) 100 mg PO BID [facility] Last Admin: 10/03/19 09:51 Dose: 100 mg Enoxaparin Sodium (Lovenox(*)) 40 mg SUBCUT Q24H [facility] Last Admin: 10/02/19 18:13 Dose: 40 mg Magnesium Hydroxide (Milk Of Magnesia Liq*) 30 ml PO Q4H PRN PRN Reason: CONSTIPATION Metoprolol Tartrate (Lopressor Tab*) 25 mg PO BID [facility] Last Admin: 10/03/19 09:51 Dose: 25 mg Oxycodone/Acetaminophen (Percocet 5/325 Tab*) 1 tab PO Q4H PRN PRN Reason: PAIN - MODERATE Ramipril (Altace Cap*) 5 mg PO BEDTIME [facility] Last Admin: 10/02/19 20:30 Dose: 5 mg Vital Signs - 8 hr 10/03/19 11:08 Temperature 98.1 F Pulse Rate 71 Respiratory 16 Rate Blood Pressure 125/59 (mmHg) O2 Sat by Pulse 94 Oximetry Oxygen Devices in Use Now: None Appearance: alert, NAD Eyes: PERRLA Ears/Nose/Mouth/Throat: Mucous Membranes Moist Neck: NL Appearance and Movements; NL JVP Respiratory: Symmetrical Chest Expansion and Respiratory Effort, Clear to Auscultation Cardiovascular: NL Sounds; No Murmurs; No JVD, RRR Abdominal: NL Sounds; No Tenderness; No Distention Extremities: - - LE edema improved Skin: No Rash or Ulcers Neurological: Alert and Oriented x 3, NL Sensation, NL Muscle Strength and Tone Nutrition: Taking PO's Result Diagrams: 10/02/19 05:16 10/02/19 05:16 Diagnostic Imaging: Patient Name: AIXA HANSEN Medical Record#: [id number] Ordering Physician[id number] 1930 Age: 89 Sex: F Location: EMERGENCY DEPARTMENT Exam Date: 10/01/191218 ADM Status: REG ER Order Information: CT SPINE LUMBAR W/O Accession Number: [id number] CPT: 59023 INDICATION: Low back pain since a fall 3 days earlier COMPARISON: MRI lumbar spine March 2012 TECHNIQUE: Contiguous axial sections were obtained beginning lower thoracic vertebra and continuing through the sacrum. Images were reconstructed in the sagittal and coronal planes. FINDINGS: Depicted well on the sagittal plane images, there is cortical discontinuity and loss of vertebral height involving the superior half of the L4 vertebral body. Fracture lines are visible on the axial plane images. Elsewhere there is loss of intervertebral disc height, marginal osteophyte formation and multilevel vacuum disc phenomenon. There is multilevel spinal stenosis due to broad-based intervertebral disc protrusion, facet arthropathy and thickening of the ligamentum flavum. This is most severe at L3/L4 perhaps exacerbated by the apparently fractured posterior superior endplate that abuts the ventral thecal sac (sagittal image 35 and axial image 58. Incidentally noted is coarse atherosclerotic calcification of the abdominal aorta and common iliac arteries. There is aneurysmal dilatation of the infrarenal abdominal aorta measuring 3.3 cm in greatest AP dimension. IMPRESSION: 1. CT findings are consistent with L4 superior vertebral body compression fracture that is new since the March 23, 2012 MRI. The posterior superior corner endplate of the vertebral body abuts the ventral spinal cord which mat be exacerbating the patient's spinal stenosis at this level. If it will influence clinical management of this patient, MRI could be obtained for superior characterization. 2. 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 3. Infrarenal abdominal aortic aneurysm measuring 3.4 cm in diameter, increased slightly from 3.2 cm on the March 23, 2012 MRI. . Assess/Plan/Problems-Billing Assessment: This is an 89 year old female with hx of HTN, arotic valve replacement and OA that presented to ED with complaints of intractable back pain and inability to ambulate after a fall in her bathroom 3 days prior. - Patient Problems (1) Traumatic compression fracture of L4 vertebra Code(s): S32.040A - WEDGE COMPRESSION FRACTURE OF FOURTH LUMBAR VERTEBRA, INIT SNOMED Code(s): 998727564 Comment: - With retropulsion, intractable back pain and inability to ambulate - MRI confirms CT findings - NS recs additional CTs of thoracic and cspine, if no further fxs, will order TLSO brace and upright xrays - Pain control - PT/OT eval after eval by NS and brace (2) HTN (hypertension) Code(s): I10 - ESSENTIAL (PRIMARY) HYPERTENSION SNOMED Code(s): 22746419 Comment: - Stable on raipril and metoprolol (3) History of aortic valve replacement Code(s): Z95.2 - PRESENCE OF PROSTHETIC HEART VALVE SNOMED Code(s): 1008678264753 Comment: - Bioprosthetic, no AC - Stable (4) History of DVT (deep vein thrombosis) Code(s): Z86.718 - PERSONAL HISTORY OF OTHER VENOUS THROMBOSIS AND EMBOLISM SNOMED Code(s): 143829553 Comment: - Takes full dose aspirin at home, holding and replaced with lovenox 40mg daily , high risk for DVT again now that she is on bedrest - Right calf is larger on exam which patient states is her baseline and she has no tenderness (5) Patient is full code Code(s): Z78.9 - OTHER SPECIFIED HEALTH STATUS SNOMED Code(s): 588134473 Status and Disposition: Inpatient pending brace fitting and additional films. Dispo home with services vs DAI.
[2019-10-03] MEDS: Enoxaparin(*) 40 MG/0.4 ML SYR SUBCUT SCH (17:40)
--- NOTE | 2019-10-03 19:09 | PN ---
Progress Note - Progress Note Date of Service: 10/03/19 Note: Reviewed images MRI demonstrates acute on chronic L4 stable burst fracture with no ligament injury. Also reviewed CT scans of Thoracic and Cervical spine. There were no acute injury to cervical spine, just moderate to severe degenerative changes. The thoracic spine CT, there were some questionable findings on what appears to be T10, not sure if there is a fracture, it was not documented on radiology report. A call was placed to radiology to discuss this finding, but have not heard from them at this time. This will probably not change the treatment plan. Patient is recommended to a TLSO brace should be worn when sitting up or standing. Once she is properly fitted with brace, she will need upright x rays while wearing brace. Neurosurgery will follow up x ray results. Patient has been informed of imaging results and treatment paln.
[2019-10-03] MEDS: Ramipril CAP* 5 MG PO SCH (20:46)
[2019-10-04] MEDS: Cholecalciferol TAB* 1000 UNITS PO SCH (09:57)
[2019-10-04] MEDS: Docusate CAP* 100 MG PO SCH ×2 (09:57→21:26)
[2019-10-04] MEDS: Metoprolol Tartrate TAB* 25 MG PO SCH ×2 (09:57→21:27)
--- NOTE | 2019-10-04 17:28 | PN ---
Subjective Date of Service: 10/04/19 Interval History: Patient seen and examined, braced not received yet. Patient does seem understandably frustrated. Her pain is controlled at rest, has not ambulated yet. Denies SOB, no fevers or chills, no leg pain or paresthesias. Objective Active Medications: Acetaminophen (Tylenol Tab*) 650 mg PO Q6H PRN PRN Reason: MILD PAIN or TEMP > 100.4 Cholecalciferol (Vitamin D Tab*) 1,000 units PO DAILY [facility] Last Admin: 10/04/19 09:57 Dose: 1,000 units Docusate Sodium (Colace Cap*) 100 mg PO BID [facility] Last Admin: 10/04/19 09:57 Dose: 100 mg Enoxaparin Sodium (Lovenox(*)) 40 mg SUBCUT Q24H [facility] Last Admin: 10/03/19 17:40 Dose: 40 mg Magnesium Hydroxide (Milk Of Magnesia Liq*) 30 ml PO Q4H PRN PRN Reason: CONSTIPATION Last Admin: 10/04/19 09:57 Dose: 30 ml Metoprolol Tartrate (Lopressor Tab*) 25 mg PO BID [facility] Last Admin: 10/04/19 09:57 Dose: 25 mg Oxycodone/Acetaminophen (Percocet 5/325 Tab*) 1 tab PO Q4H PRN PRN Reason: PAIN - MODERATE Ramipril (Altace Cap*) 5 mg PO BEDTIME [facility] Last Admin: 10/03/19 20:46 Dose: 5 mg Vital Signs - 8 hr 10/04/19 11:15 Temperature 99.1 F Pulse Rate 78 Respiratory 18 Rate Blood Pressure 115/59 (mmHg) O2 Sat by Pulse 93 Oximetry Oxygen Devices in Use Now: None Appearance: alert, NAD Eyes: PERRLA Ears/Nose/Mouth/Throat: Mucous Membranes Moist Neck: NL Appearance and Movements; NL JVP Respiratory: Symmetrical Chest Expansion and Respiratory Effort, Clear to Auscultation Cardiovascular: NL Sounds; No Murmurs; No JVD, RRR Extremities: No Clubbing, Cyanosis, - - pedal edema improved Skin: No Rash or Ulcers Nutrition: Taking PO's Result Diagrams: 10/02/19 05:16 10/02/19 05:16 Diagnostic Imaging: Patient Name: AIXA HANSEN Medical Record#: [id number] Ordering Physician: Edgar Burrows MD Acct.#: [id number] : 1930 Age: 89 Sex: F Location: EMERGENCY DEPARTMENT Exam Date: 10/01/191218 ADM Status: REG ER Order Information: CT SPINE LUMBAR W/O Accession Number: [id number] CPT: 09376 INDICATION: Low back pain since a fall 3 days earlier COMPARISON: MRI lumbar spine March 2012 TECHNIQUE: Contiguous axial sections were obtained beginning lower thoracic vertebra and continuing through the sacrum. Images were reconstructed in the sagittal and coronal planes. FINDINGS: Depicted well on the sagittal plane images, there is cortical discontinuity and loss of vertebral height involving the superior half of the L4 vertebral body. Fracture lines are visible on the axial plane images. Elsewhere there is loss of intervertebral disc height, marginal osteophyte formation and multilevel vacuum disc phenomenon. There is multilevel spinal stenosis due to broad-based intervertebral disc protrusion, facet arthropathy and thickening of the ligamentum flavum. This is most severe at L3/L4 perhaps exacerbated by the apparently fractured posterior superior endplate that abuts the ventral thecal sac (sagittal image 35 and axial image 58. Incidentally noted is coarse atherosclerotic calcification of the abdominal aorta and common iliac arteries. There is aneurysmal dilatation of the infrarenal abdominal aorta measuring 3.3 cm in greatest AP dimension. IMPRESSION: 1. CT findings are consistent with L4 superior vertebral body compression fracture that is new since the March 23, 2012 MRI. The posterior superior corner endplate of the vertebral body abuts the ventral spinal cord which mat be exacerbating the patient's spinal stenosis at this level. If it will influence clinical management of this patient, MRI could be obtained for superior characterization. 2. 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 3. Infrarenal abdominal aortic aneurysm measuring 3.4 cm in diameter, increased slightly from 3.2 cm on the March 23, 2012 MRI. . Assess/Plan/Problems-Billing Assessment: This is an 89 year old female with hx of HTN, arotic valve replacement and OA that presented to ED with complaints of intractable back pain and inability to ambulate after a fall in her bathroom 3 days prior. - Patient Problems (1) Traumatic compression fracture of L4 vertebra Code(s): S32.040A - WEDGE COMPRESSION FRACTURE OF FOURTH LUMBAR VERTEBRA, INIT SNOMED Code(s): 641197829 Comment: - With retropulsion, intractable back pain and inability to ambulate - MRI confirms CT findings - CT thoracic an cervical spine with no additional fractures - Pain control PRN - Pending brace and upright xrays, if stable, needs PT/OT evals (2) HTN (hypertension) Code(s): I10 - ESSENTIAL (PRIMARY) HYPERTENSION SNOMED Code(s): 08518280 Comment: - Stable on raipril and metoprolol (3) History of aortic valve replacement Code(s): Z95.2 - PRESENCE OF PROSTHETIC HEART VALVE SNOMED Code(s): 5671838035483 Comment: - Bioprosthetic, no AC - Stable (4) History of DVT (deep vein thrombosis) Code(s): Z86.718 - PERSONAL HISTORY OF OTHER VENOUS THROMBOSIS AND EMBOLISM SNOMED Code(s): 336375269 Comment: - Takes full dose aspirin at home, holding and replaced with lovenox 40mg daily , high risk for DVT again now that she is on bedrest - Right calf is larger on exam which patient states is her baseline and she has no tenderness, but has improved on bedrest - Recommend TEDs for dependent edema when she is able to ambulate, ordered (5) Patient is full code Code(s): Z78.9 - OTHER SPECIFIED HEALTH STATUS SNOMED Code(s): 013177281 Status and Disposition: Inpatient pending brace fitting and additional films. Dispo home with services vs DAI.
[2019-10-04] MEDS: Enoxaparin(*) 40 MG/0.4 ML SYR SUBCUT SCH (19:37)
--- NOTE | 2019-10-04 20:27 | PN ---
Progress Note - Progress Note Date of Service: 10/04/19 Note: Patient was fitted for TLSO brace, she completed standing x rays with brace on her alignment is maintained. Patient should wear brace anytime she is sitting up right or standing. Neurosurgery recommends patient walks with PT, if does well she is clear from neurosurgery stand point. She should follow up in 3 weeks with new a new standing X ray with brace on.
[2019-10-04] MEDS: Ramipril CAP* 5 MG PO SCH (21:26)
[2019-10-05] MEDS: Metoprolol Tartrate TAB* 25 MG PO SCH (10:01)
[2019-10-05] MEDS: Docusate CAP* 100 MG PO SCH (10:01)
[2019-10-05] MEDS: Cholecalciferol TAB* 1000 UNITS PO SCH (10:01)
[2019-10-05 11:25] VITALS: BP 110/70
--- NOTE | 2019-10-05 21:56 | DS ---
CC: Dr. Blevins; Dr. Fine * DISCHARGE SUMMARY: DATE OF ADMISSION: 10/01/19 DATE OF DISCHARGE: 10/05/19 PROVIDER: TONYA Obrien PRIMARY CARE PROVIDER: Dr. Blevins CONSULTING NEUROSURGEON: Dr. Fine ATTENDING PROVIDER: Akhil Chaparro MD* (DICTATED BY TONYA OBRIEN) PRIMARY DIAGNOSIS: L4 fracture. STUDIES WHILE IN THE HOSPITAL: Lumbar spine CT on 10/01/19, findings are consistent with L4 superior vertebral body compression fracture that is new since March 2012. Posterior superior corner endplate of the vertebral body abuts the ventral spinal cord which may be exacerbating the patient's spinal stenosis at this level. If it will influence clinical management of this patient, MRI could be obtained for superior characterization. 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 Infrarenal abdominal aortic aneurysm measuring 3.4 cm in diameter increased slightly from 3.2 cm on . Lumbar spine MRI on 10/01/19, impression: Acute to subacute compression fracture of the superior endplate of L4. As was seen on the recent CT examination, in the posterior superior corner endplate, the vertebral body distorts vertebral thecal sac. Degenerative disease resulting in multilevel central canal or neuroforaminal stenosis. The most severe level appears to be L4-L5. 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 Cervical spine CT on 10/03/19, generalized osteopenia with no cervical spine fracture. Varying degree of spondylosis. Generalized heterogeneity of the thyroid could be better evaluated. Ultrasound thoracic spine CT on 10/03/19, scoliosis. Osteopenia. Degenerative disk disease and osteoarthritis. No acute osseous injury to the thoracic spine. Thoracic spine x-ray on 10/04/19, demonstrated L4 compression fracture as above. Multilevel spondylosis as above. This x-ray demonstrated sufficient alignment with brace. HISTORY OF PRESENT ILLNESS/HOSPITAL COURSE: Ms. Case is an 89-year-old white female with past medical history significant for aortic valve disease, osteoarthritis, history of DVT, and hypertension, who presented to the emergency department with intractable back pain several days after a mechanical fall. The patient fell in her home due to mechanical fall and several days later developed worsening back pain that was radiating down both legs and preventing her from being able to ambulate. She is normally able to ambulate with a walker at baseline without difficulty. For further details, please see the admitting history and physical written by Courtney Kirk NP. The spine imagings as above demonstrated the L4 fracture likely with disk retropulsion of the fracture causing her symptoms. Neurosurgery has seen the patient in consultation and recommended TLSO brace, but with the brace intact and tolerating well. Her pain was well controlled and only requiring Tylenol during her hospital stay. Neurosurgery is not recommending any surgical intervention at this time and recommending conservative treatment. Her TLSO brace was brought to the hospital and was fitted and she was able to ambulate easily with physical therapy and was deemed to go home. On date of discharge, the patient has no pain. She has no numbness or pain radiating down her legs. Denies difficulty of bowel or bladder incontinence. PHYSICAL EXAMINATION: General: Thin elderly white female sitting in hospital chair, wearing TLSO brace, appeared comfortable, in no acute distress. Eyes: PERRLA. Sclerae anicteric. ENT: Mucous membranes are moist. Neck: Supple without JVD. Cardio: Regular rate and rhythm without murmurs, rubs, or gallops. Lungs: Clear to auscultation throughout. Abdomen: Soft, nontender, nondistended. Extremities: No clubbing, cyanosis, or edema. Neuro: The patient is alert and oriented x3. No focal deficits. Strength is 5/5 in all extremities. Sensation is grossly intact throughout bilateral lower extremities and equal. Skin: Warm, dry, and intact. DISCHARGE PLAN: Diet: Regular unrestricted diet. Activity: The patient should be wearing TLSO brace when sitting upright or standing or ambulating. She is to avoid bending, twisting, and lifting. Follow up with primary care provider, Dr. Blevins. Please follow the infrarenal abdominal aortic aneurysm, which has increased in size since 2011. The patient is to follow up with Dr. Fine in 3 weeks. At this time, depending on his recommendations, she will benefit from having PT outpatient and VNS will be assisting in this at home. She can continue Tylenol for any pain control. She is advised to return to the hospital if she is experiencing bowel or bladder incontinence, severe back pain, numbness, tingling, or weakness of her lower extremities. She should follow up with her primary care provider in a week. DISCHARGE MEDICATIONS: 1. Tylenol 650 mg p.o. q.6 hours p.r.n. pain. 2. Aspirin 325 mg p.o. daily. 3. Vitamin D 1000 units p.o. daily. 4. Metoprolol tartrate 25 mg p.o. b.i.d. 5. Ramipril 5 mg p.o. at bedtime. CONDITION ON DISCHARGE: Stable. DISPOSITION: Home. TIME SPENT: Approximately 40 minutes were spent on this discharge, approximately half that time spent at the bedside evaluating the patient, discussing the plan of care. TONYA OBRIEN [id number]/[facility] #: [id number] MTDD
== END 2019-10-05 15:30 | disposition home health service (06) | DRG 552 ==
LOC: ED 12:05 → MED 17:43 → OBSVTOIN 10-02 16:00
PROVIDERS: ADMIT Internal Medicine; ATTEND Internal Medicine
PROC: 2W35X3Z Immobilization of Back using Brace (ICD-10-PCS; principal; 2019-10-04)
DX: S32.041A Stable burst fracture of fourth lumbar vertebra, initial encounter for closed fracture (principal); M48.061 Spinal stenosis, lumbar region without neurogenic claudication; I71.4 Abdominal aortic aneurysm, without rupture; M51.36 Other intervertebral disc degeneration, lumbar region; M85.88 Other specified disorders of bone density and structure, other site; M50.30 Other cervical disc degeneration, unspecified cervical region; M48.02 Spinal stenosis, cervical region; M47.894 Other spondylosis, thoracic region; M47.892 Other spondylosis, cervical region; W18.30XA Fall on same level, unspecified, initial encounter; Z96.649 Presence of unspecified artificial hip joint; Z95.2 Presence of prosthetic heart valve; Z86.718 Personal history of other venous thrombosis and embolism; Y92.002 Bathroom of unspecified non-institutional (private) residence as the place of occurrence of the external cause; Z79.1 Long term (current) use of non-steroidal anti-inflammatories (NSAID); Z79.82 Long term (current) use of aspirin; Z79.899 Other long term (current) drug therapy; Z91.018 Allergy to other foods; Z87.891 Personal history of nicotine dependence
CPT/HCPCS: 36415; 72100; 72125; 72128; 72131; 72148; 80048; 85025; 96372; 99284; A9270-GY; G0378; G8978-GP-CJ; G8979-GP-CI; J1650

== ENCOUNTER 2019-12-18 10:58 | Observation (INO) | payer MEDICARE, OTHER ==
--- NOTE | 2019-12-18 11:05 | ED ---
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 She states that she did not her head, and denies neck pain, head pain, and LOC. She endorses pain in the back of her right rib cage and the back of her left leg. In the room, movement worsened her pain. She endorses a history of chronic edema in the legs as well as chronic shortening of her left lower extremity. She takes 300mg Aspirin per day. She also has a history of an L4 spinal fracture in September 2019 for which she was seen at [facility] and admitted. - History of Current Complaint Stated Complaint: FALL/L BUTTOCKS PAIN PER EMS Time Seen by Provider: 12/18/19 11:04 Hx Obtained From: Patient, EMS Mechanism of Injury: Fall Loss of Consciousness: no loss of consciousness Onset/Duration: Still Present Onset of Pain: Prior to Arrival Current Severity: Severe Pain Intensity: 9 Pain Scale Used: 0-10 Numeric Location: Chest - right rib cage, Extremities - left lower Aggravating Factor(s): Movement Associated Signs & Symptoms: Positive: Chest Pain - right rib pain - Additional Pertinent History Primary Care Physician: [id number] - Allergy/Home Medications Allergies/Adverse Reactions: Allergies Allergy/AdvReac Type Severity Reaction Status Date / Time tramadol Allergy Abdominal Verified 12/18/19 20:17 Pain CHERRIES Allergy Hives Uncoded 12/18/19 20:14 Home Medications: Home Medications Acetaminophen [Tylenol Extra Strength] 1,000 mg PO Q6H PRN 12/18/19 [History Confirmed 12/18/19] PMH/Surg Hx/FS Hx/Imm Hx Endocrine/Hematology History: Denies: Hx Diabetes, Hx Unexplained Bleeding Cardiovascular History: Reports: Hx Congenital Heart Disease, Hx Coronary Artery Disease, Hx Deep Vein Thrombosis - 2010 POST SURGERY, Hx Hypertension, Hx Valvular Heart Disease, Other Cardiovascular Problems/Disorders - Aortic Regurgitation, Mitral Regurgitation Denies: Hx Aneurysm, Hx Angina, Hx Angioplasty, Hx Auto Implanted Cardiovert Defib, Hx Cardiac Arrest, Hx Cardiomegaly, Hx Congestive Heart Failure, Hx Hypercholesterolemia, Hx Hypotension, Hx Pacemaker/ICD, Hx Peripheral Vascular Disease, Hx Rheumatic Fever, Hx Syncope GI History: Reports: Hx Gastroesophageal Reflux Disease Denies: Hx Cirrhosis, Hx Crohn's Disease, Hx Diverticulosis, Hx Gall Bladder Disease, Hx Gastrointestinal Bleed, Hx Hiatal Hernia, Hx Irritable Bowel, Hx Jaundice, Hx Obstructive Bowel, Hx Ileostomy, Hx Pyloric Stenosis, Hx Ulcer, Other GI Disorders History: Denies: Hx Renal Disease Musculoskeletal History: Reports: Hx Arthritis - EVERYWHERE, Hx Back Problems - Chronic back pain, Hx Orthopedic Injury - BROKE HIP; L4 lumbar fx Sep 2019, Hx Osteoporosis - THRU OUT, Other Musculoskeletal History - LEFT HIP AND LEFT KNEE SURGERY- DVT POST HIP SURGERY 2008 Denies: Hx Bursitis, Hx Congenital Bone Abnormalities, Hx Fibromyalgia, Hx Gout, Hx Scoliosis, Hx Tendonitis Sensory History: Reports: Hx Cataracts, Hx Contacts or Glasses - for reading only, Hx Hearing Aid - bilateral, Hx Hearing Problem Denies: Hx Eye Injury, Hx Eye Prosthesis, Hx Glaucoma, Hx Macular Degeneration, Hx Vision Problem, Hx Deafness, Other Sensory Impairments Opthamlomology History: Reports: Hx Cataracts, Hx Contacts or Glasses - for reading only Denies: Hx Eye Injury, Hx Eye Prosthesis, Hx Glaucoma, Hx Macular Degeneration, Hx Vision Problem, Other Sensory Impairments Neurological History: Denies: Hx Dementia, Hx Developmental Delay, Hx Headaches, Hx Migraine, Hx Seizures, Hx Spinal Cord Injury, Hx Transient Ischemic Attacks (TIA), Other Neuro Impairments/Disorders Psychiatric History: Denies: Hx Panic Disorder - Surgical History Surgery Procedure, Year, and Place: LEFT HIP REPLACEMENT/RODDING;. AORTIC VALVE REPLACEMENT;. HEART CATH (NO STENTS);. FAILURE OF AORTIC VALVE REPLACEMENT AND 2ND SURGERY TO REPLACE FAILED VALVE;. APPENDECTOMY;. GALLBLADDER;. BILATERAL CATARACTS; Hx Anesthesia Reactions: No Infectious Disease History: Reports: Hx Shingles - ten years ago Denies: Hx Clostridium Difficile, Hx Hepatitis, Hx Human Immunodeficiency Virus (HIV), Hx Tuberculosis - Family History Known Family History: Negative: Diabetes - Social History Alcohol Use: Rare Alcohol Amount: 10 times a year Substance Use Type: Reports: None Hx Tobacco Use: Yes Smoking Status (MU): Former Smoker Have You Smoked in the Last Year: No Review of Systems Positive: Chest Pain - right rib Positive: Other - positive - pain in poterior left leg; negative - head pain, neck pain Neurological: Other - no LOC All Other Systems Reviewed And Are Negative: Yes Physical Exam - Summary Physical Exam Summary: VITAL SIGNS: Reviewed. GENERAL: Patient is a well-developed and nourished female who is lying comfortable in the stretcher. Patient is not in any acute respiratory distress. HEAD AND FACE: No signs of trauma. No ecchymosis, hematomas or skull depressions. No sinus tenderness. EYES: PERRLA, EOMI x 2, No injected conjunctiva, no nystagmus. EARS: Hearing grossly intact. Ear canals and tympanic membranes are within normal limits. MOUTH: Oropharynx within normal limits. NECK: Supple, trachea is midline, no adenopathy, no JVD, no carotid bruit, no c- spine tenderness, neck with full ROM. CHEST: Symmetric, tenderness in the right rib cage. LUNGS: Clear to auscultation bilaterally. No wheezing or crackles. CVS: Regular rate and rhythm, S1 and S2 present, no murmurs or gallops appreciated. ABDOMEN: Soft, non-tender. No signs of distention. No rebound, no guarding, and no masses palpated. Bowel sounds are normal. EXTREMITIES: FROM in all major joints, no cyanosis or clubbing. Hematoma in posterior aspect of the left thigh and left buttocks. NEURO: Alert and oriented x 3. No acute neurological deficits. Speech is normal and follows commands. SKIN: Dry and warm. Triage Information Reviewed: Yes Vital Signs Reviewed: Yes Procedures - Sedation Patient Received Moderate/Deep Sedation with Procedure: No Diagnostics - Laboratory Result Diagrams: 12/19/19 05:04 12/19/19 05:04 Lab Statement: Any lab studies that have been ordered have been reviewed, and results considered in the medical decision making process. - Radiology left femur x-ray Radiology Interpretation Completed By: Radiologist Summary of Radiographic Findings: IMPRESSION: 1. OSTEOPENIA WITH NO DISPLACED FRACTURE. IF PAIN PERSISTS, FURTHER IMAGING IS. RECOMMENDED. 2. STATUS POST LEFT HIP ORIF. This report was reviewed by the ED physician. hip/pelvis x-ray Radiology Interpretation Completed By: Radiologist Summary of Radiographic Findings: IMPRESSION: 1. OSTEOPENIA WITH NO DISPLACED FRACTURE IDENTIFIED. IF THE PATIENT'S SYMPTOMS PERSIST. RECOMMEND FOLLOW-UP IMAGING. 2. STATUS POST LEFT HIP ORIF. This report was reviewed by the ED physician. rib/chest x-ray Radiology Interpretation Completed By: Radiologist Summary of Radiographic Findings: IMPRESSION: 1. Increased soft tissue attenuation in the apex of the right hemithorax. An underlying. neoplasm is not excluded. 2. Minimally displaced right seventh through ninth rib fractures with no large. pneumothorax. 3. Postoperative changes. 4. Linear bilateral midlung zone airspace opacification (atelectasis favored). This report was reviewed by the ED physician. - CT chest/adbomen/pelvis CT Interpretation Completed By: Radiologist Summary of CT Findings: IMPRESSION: 1. THE REDUNDANT AND TORTUOUS APPEARANCE OF THE INNOMINATE ARTERY AND ITS PROXIMAL. BRANCHING VESSELS ACCOUNTS FOR THE RIGHT APICAL DENSITY ON RECENT CHEST RADIOGRAPH. NO. LUNG MASS IDENTIFIED. 2. MINIMALLY DISPLACED RIGHT EIGHTH THROUGH 10TH RIB FRACTURES. 3. SCLEROTIC APPEARING T3 COMPRESSION FRACTURE RESULTING IN 10% VERTEBRAL BODY HEIGHT. LOSS. NO BONY RETROPULSION. 4. SCLEROTIC L4 COMPRESSION FRACTURE WITH PROGRESSIVE 50% VERTEBRAL BODY HEIGHT LOSS AND. MODERATE BONY RETROPULSION. 5. A FUSIFORM ABDOMINAL AORTIC ANEURYSM MEASURES UP TO 4.2 CM. 6. A LEFT GLUTEAL SUBCUTANEOUS SOFT TISSUE DENSITY MEASURES UP TO 4.8 CM. THE CONTEXT OF. TRAUMA, THIS MAY BE BRUSH FILLER HAND OF A HEMATOMA. IF CLINICALLY EQUIVOCAL, FOLLOW-UP WITH. TARGETED ULTRASOUND. 7. THERE IS A 1 CM NODULE IN THE RIGHT LOBE OF THE THYROID. 8. MILD CARDIOMEGALY STATUS POST AVR. THE ASCENDING AORTA IS ECTATIC. This report was reviewed by the ED physician. 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 She states that she did not her head, and denies neck pain, head pain, and LOC. She endorses pain in the back of her right rib cage and the back of her left leg. In the room, movement worsened her pain. She endorses a history of chronic edema in the legs as well as chronic shortening of her left lower extremity. She takes 300mg Aspirin per day. She also has a history of an L4 spinal fracture in September 2019 for which she was seen at [facility] and admitted. In the ED course the patient was placed in a canteen manager, IV access was obtained, IV fluids started. Blood test w/o a significant abnormality except for BUN 27, creatinine 0.96, glucose 102 and calcium 11. Urinalysis is negative for UTI. Femur x ray IMPRESSION: 1. OSTEOPENIA WITH NO DISPLACED FRACTURE. IF PAIN PERSISTS, FURTHER IMAGING IS RECOMMENDED. 2. STATUS POST LEFT HIP ORIF. Left hip and pelvic xray IMPRESSION: 1. OSTEOPENIA WITH NO DISPLACED FRACTURE IDENTIFIED. IF THE PATIENT'S SYMPTOMS PERSIST. RECOMMEND FOLLOW-UP IMAGING. 2. STATUS POST LEFT HIP ORIF. Rib x ray IMPRESSION: 1. Increased soft tissue attenuation in the apex of the right hemithorax. An underlying. neoplasm is not excluded. 2. Minimally displaced right seventh through ninth rib fractures with no large. pneumothorax. 3. Postoperative changes. 4. Linear bilateral midlung zone airspace opacification (atelectasis favored). Chest, abdomen and pelvic CT, L and T spine CT IMPRESSION: 1. THE REDUNDANT AND TORTUOUS APPEARANCE OF THE INNOMINATE ARTERY AND ITS PROXIMAL BRANCHING VESSELS ACCOUNTS FOR THE RIGHT APICAL DENSITY ON RECENT CHEST RADIOGRAPH. NOLUNG MASS IDENTIFIED. 2. MINIMALLY DISPLACED RIGHT EIGHTH THROUGH 10TH RIB FRACTURES. 3. SCLEROTIC APPEARING T3 COMPRESSION FRACTURE RESULTING IN 10% VERTEBRAL BODY HEIGHT LOSS. NO BONY RETROPULSION. 4. SCLEROTIC L4 COMPRESSION FRACTURE WITH PROGRESSIVE 50% VERTEBRAL BODY HEIGHT LOSS AND MODERATE BONY RETROPULSION. 5. A FUSIFORM ABDOMINAL AORTIC ANEURYSM MEASURES UP TO 4.2 CM. 6. A LEFT GLUTEAL SUBCUTANEOUS SOFT TISSUE DENSITY MEASURES UP TO 4.8 CM. THE CONTEXT OF TRAUMA, THIS MAY BE BRUSH FILLER HAND OF A HEMATOMA. IF CLINICALLY EQUIVOCAL, FOLLOW-UP WITH TARGETED ULTRASOUND. 7. THERE IS A 1 CM NODULE IN THE RIGHT LOBE OF THE THYROID. 8. MILD CARDIOMEGALY STATUS POST AVR. THE ASCENDING AORTA IS ECTATIC. I discussed case with Dr. Mansfield from neurosurgery think he will consult for this patient. The patient was given [place], she only requested PO medications at this point. I also discussed my physical exam and findings with Dr. Phillips from the hospital services was accepted the patient for admission. The patient is hemodynamically stable. - Diagnoses Provider Diagnoses: Rib fractures, T3 vertebral fracture, L4 vertebral fracture, Dehydration, Hematoma, AAA (abdominal aortic aneurysm) without rupture, Thyroid nodule, Cardiomegaly - Physician Notifications Discussed Care Of Patient With: Monique Fine Time Discussed With Above Provider: 13:58 Instructed by Provider To: Other - Patient's case was discussed with Dr. Fine, who is willing to admit the patient but requests a C-spine CT. The patient was admitted to Dr. Phillips. Discharge ED - Sign-Out/Discharge Documenting (check all that apply): Patient Departure - admit - Discharge Plan Condition: Stable Disposition: ADMITTED TO [facility] - Billing Disposition and Condition Condition: STABLE Disposition: Admitted to [facility] - Attestation Statements Document Initiated by Romie: Yes Documenting Scribe: Weston Burt Provider For Whom Romie is Documenting (Include Credential): Deondre Cortez MD Scribe Attestation: Weston Liu, scribed for Deondre Cortez MD on 12/19/19 at 1335. Scribe Documentation Reviewed: Yes Provider Attestation: The documentation as recorded by the Weston crawley accurately reflects the service I personally performed and the decisions made by Deondre lynn MD Status of Scribe Document: Viewed
--- OUTSIDE RECORDS SUMMARY | 2019-12-18 11:08 | XMS REPORT ---
:1930 Author Organization [facility] Care Team Providers Name Role Phone Unavailable Unavailable Unavailable Problems Condition Condition Condition Status Onset Resolution Last Treating Comments Name Details Category Date Date Treatment Clinician Date Pain frequent Pain Mgmt Resolve 2018-112019-10-12 Teri pain d 12-07 08:45:00 (Junior) 08:45: Gong 00 [id number] Cardio edema Cardiovasc Resolve 2018-112019-10-12 Teri ular d 12-07 08:45:00 (Junior) 08:45: Gong 00 [id number] Respiratory dyspnea Respirator Resolve 2018-112019-10-12 Etri present y d 12-07 08:45:00 (Junior) 08:45: Gong 00 [id number] Endo/Marcell anti-coagul Endo/Marcell Resolve 2018-112019-10-12 Teri ation d 12-07 08:45:00 (Junior) therapy 08:45: Gong 00 [id number] Sensory impaired Sensory Resolve 2018-112019-10-12 Teri hearing d 12-07 08:45:00 (Junior) 08:45: Gong 00 [id number] Integument skin Integument Resolve 2018-112019-10-12 Teri integrity d 12-07 08:45:00 (Junior) risk 08:45: Gong 00 [id number] Elimination urinary Eliminatio Resolve 2018-112019-10-12 Teri incontinenc n d 12-07 08:45:00 (Junior) e 08:45: Gong 00 [id number] Elimination bowel Eliminatio Resolve 2018-112019-10-12 Teri incontinenc n d 12-07 08:45:00 (Junior) e 08:45: Gong 00 [id number] Neuro confusion Neuro/Emot Resolve 2018-112019-10-12 Teri present ion d 12-07 08:45:00 (Junior) 08:45: Ogng 00 [id number] Activity ADL Activity Resolve 2018-112019-10-12 Teri assistance d 12-07 08:45:00 (Junior) required 08:45: Gong 00 [id number] Activity self-care Activity Resolve 2018-112019-10-12 Teri deficit d 12-07 08:45:00 (Junior) 08:45: Gong 00 [id number] Safety fall risk Safety Resolve 2018-112019-10-12 Teri factor d 12-07 08:45:00 (Junior) present 08:45: Gong 00 [id number] Safety risk for Safety Resolve 2018-112019-10-12 Teri hospitaliza d 12-07 08:45:00 (Junior) tion 08:45: Gong 00 [id number] Safety can be left Safety Resolve 2018-112019-10-12 Teri alone for d 12-07 08:45:00 (Junior) only short 08:45: Gong periods 00 [id number] Medication oral med Meds Resolve 2018-112019-10-12 Teri assistance d 12-07 08:45:00 (Junior) required 08:45: Gong 00 [id number] Musculoskel transfer Musculoske Resolve 2018-112019-10-12 Teri etal assistance letal d 12-07 08:45:00 (Junior) required 08:45: Gong 00 [id number] Musculoskel requires Musculoske Resolve 2018-112019-10-12 Teir etal human letal d 12-07 08:45:00 (Junior) assist to 08:45: Gong leave home 00 [id number] Allergies, Adverse Reactions, Alerts Allergy Allergy Type Status Severity Reaction(s) Onset Inactive Treating Comments Name Date Date Clinician marianna Base Active Unknown Hives 2019-09 Mila Beam Ingredient -21 Medications Ordered Filled Start Stop Current Ordering Indication Dosage Frequency Signature Comments Components Medication Medication Date Date Medication? Clinician (SIG) Name Name aspirin 325 aspirin 325 2018-11- Yes [place] Unknown Unknown mg tablet mg tablet 12-07 Jourdan LOZANO ramipril 5 ramipril 5 2018-11- Yes [place] Unknown Unknown mg capsule mg capsule 12-07 MD,Muhamma d Ahmad metoprolol metoprolol 2018-11- Yes [place] Unknown Unknown tartrate 25 tartrate 25 12-07 Anais LOZANOma mg tablet mg tablet d Ahmad Vitamin D3 Vitamin D3 2018-11- Yes [place] Unknown Unknown 1,000 unit 1,000 unit 12-07 Anais LOZANOma (25 mcg) (25 mcg) d Ahmad tablet tablet Tylenol Tylenol 2018-11- Yes [place] Unknown Unknown Arthritis Arthritis 12-07 Jourdan LOZANO Pain 650 mg Pain 650 mg d Ahmad tablet,exte tablet,exte nded nded release release Vital Signs Vital Name Observation Time Observation Value Comments SYSTOLIC mm[Hg] 2019-10-17 18:09:09 120 mm[Hg] mm[Hg] Method: Sit SYSTOLIC mm[Hg] 2019-10-09 18:09:01 108 mm[Hg] mm[Hg] Method: Stand DIASTOLIC mm[Hg] 2019-10-17 18:09:09 64 mm[Hg] mm[Hg] Method: Sit DIASTOLIC mm[Hg] 2019-10-09 18:09:01 66 mm[Hg] mm[Hg] Method: Stand PULSE 2019-10-17 18:09:09 80 /min /min TEMP 2019-10-17 18:09:09 97.9 [degF] Procedures This patient has no known procedures. Results This patient has no known results.
--- OUTSIDE RECORDS SUMMARY | 2019-12-18 11:08 | XMS REPORT | Summary of Care ---
:1930 Author Organization [facility] Address [address] [address] Care Team Providers Name Role Phone Chloe Blevins MD Primary Care Provider Reason for Visit Reason Comments Hearing Evaluation Encounter Details Date Type Department Care Team Description 12/14/2019 Office Visit [facility] - Jorge Luis Hayes, Sensorineural hearing [place] AuD loss, asymmetrical 10 [facility] [address] (Primary Dx) [place] [address] [address] [address] [phone] Allergies No Known Allergiesdocumented as of this encounter (statuses as of 12/14/2019) Medications Medication Sig Dispensed Refills Start Date End Date Status metoprolol (LOPRESSOR) Take 0.5 Tabs by 90 3 07/18/2008 Active 50 MG Oral Tab mouth TWICE DAILY. ramipril (ALTACE) 10 Take 1 Cap by 90 3 07/18/2008 Active MG Oral Cap mouth DAILY. aspirin (ECOTRIN) 81 Take 1 Tab by 0 Active mg Oral Tab EC mouth DAILY. Calcium Take 1 Tab by 0 Active Carbonate-Vitamin D mouth TWICE DAILY. 600-200 MG-UNIT Oral Tab DAILY MULTIVITAMIN PO Take 1 Tab by 0 Active mouth DAILY. GLUCOSAMINE 1500 Take 1 Cap by 0 Active COMPLEX PO mouth DAILY. tramadol (ULTRAM) 50 Take 1 Tab by 100 0 09/04/2008 Active MG Oral Tab mouth EVERY EIGHT HOURS NEEDED for Pain. metroNIDAZOLE 1 Appl by Apply 45gm 1 09/04/2008 Active (TOPICAL) 1 % Apply externally route externally DAILY. CreamIndications: Rosacea documented as of this encounter (statuses as of 12/14/2019) Active Problems Problem Noted Date Sensory hearing loss, bilateral 12/28/2009 Other tear of cartilage or meniscus of knee, current 03/14/2005 Primary localized osteoarthrosis, lower leg 03/14/2005 Disorder of bone and cartilage, unspecified 03/14/2005 Unspecified accident 03/14/[address] 03/14/2005 Unspecified internal derangement of knee 03/07/2005 Osteoarthrosis, unspecified whether generalized or localized, lower leg 2003 Pain in joint, lower leg 09/23/2004 Synovial cyst of popliteal space 09/23/2004 Prepatellar bursitis 09/23/2004 Other screening mammogram 09/09/2004 Other specified pre-operative examination 02/20/2004 Postmenopausal bleeding 02/20/2004 Other specified noninflammatory disorder of vagina 02/15/2004 Postmenopausal bleeding 02/13/2004 documented as of this encounter (statuses as of 12/14/2019) Immunizations Name Administration Dates Next Due Influenza (IM) Preservative Free 09/04/2008 Influenza Vaccine Whole 09/01/2007 documented as of this encounter Social History Tobacco Use Types Packs/Day Years Used Date Never Smoker Alcohol Use Drinks/Week oz/Week Comments No Sex Assigned at Date Recorded Not on file Job Start Date Occupation Industry Not on file Not on file Not on file Travel History Travel Start Travel End No recent travel history available. documented as of this encounter Last Filed Vital Signs Not on filedocumented in this encounter Progress Notes Jorge Luis Hayes, [place] - 12/14/2019 1:00 PM ESTHistory: The patient was accompanied to today's re-evaluation by her friend and caregiver Christoph. The patient had previously been seen for a hearing aid check and complained of a change in her hearing and speechunderstanding. A quick evaluation revealed cerumen accumulation in the left with degraded pure-tone and speech capabilities. Due to the complications noted the patient was referred to her PCP for cerumen removal. She returns today following cerumen removal with subjective improvements in hearing. Otoscopy: Otoscopy revealed clear canals and intact tympanic membranes, AU. Tympanometry: Type As tympanograms were obtained bilaterally, suggesting normal middle ear pressure and a hypo compliant tympanic membrane. Pure-tone Audiometry: Pure-tone test results were obtained using inserts. Testing revealed a mild sloping to profound sensorineural hearing loss, bilaterally, with the right> left. Pure-tone testing was completed with fair to good reliability. Results show an improvement in her left audiometric thresholds. Speech Audiometry: Speech Recognition Thresholds (SRT's) were obtained at 75 dB HL for the right ear and 70 dB HL for the left ear, which are consistent with the patient's pure- tone findings. Word Recognition Scores (WRS) revealed 44% discrimination at 100 dB for the right ear and 68% discrimination at 90 dB for the left ear for monosyllabic words presented at the patient's most comfortable listening level in a quiet environment, indicating poor word recognition in the right ear and fair word recognition in the left ear for monosyllabic words presented at a comfortable listening level in a quiet environment. Word Recognition Scores have improved since her screening at the beginning of November. Recommendations: 1. Forward test results to physician. 2. Hearing re-test in one year or sooner if suspected change in hearing. 3. Continue use of binaural amplification with them reprogrammed to today's test results. documented in this encounter Plan of Treatment Name Type Priority Associated Diagnoses Order Schedule TYMPANOMETRY Procedures Routine Sensorineural Hearing Loss, Ordered: 2019 Asymmetrical Health Maintenance Due Date Last Done Comments MEDICARE ANNUAL WELLNESS VISIT 1930 DTaP/Tdap/Td Vaccines (1 - 1943 Tdap) DEPRESSION SCREENING 1944 HIV SCREENING 1945 ZOSTER IMMUNIZATION SERIES (1 1982 of 2) FALL RISK ASSESSMENT 1997 PNEUMOCOCCAL 65+YRS (1 of 2 - 1997 PCV13) INFLUENZA VACCINE (#1) 2019 09/04/2008, 09/01/2007 HEPATITIS A IMMUNIZATION Aged Out No longer eligible based SERIES on patient's age to complete this topic HPV IMMUNIZATION SERIES Aged Out No longer eligible based on patient's age to complete this topic MENINGOCOCCAL VACCINE IMM Aged Out No longer eligible based on patient's age to complete this topic documented as of this encounter Procedures Procedure Name Priority Date/Time Associated Diagnosis Comments BASIC COMPREHENSIVE AUDIO Routine 12/14/2019 Sensorineural hearing loss, asymmetrical documented in this encounter Results Not on filedocumented in this encounter Visit Diagnoses Diagnosis Sensorineural hearing loss, asymmetrical documented in this encounter Insurance Payer Benefit Plan / Subscriber ID Effective Dates Phone Address Type Group MEDICARE MEDICARE PART A xxxxxxxxxxx 1997-Present Medicare & B A[employer] COMMERCIAL AETNA xxxxxxxxxx 1998-Present A[employer]na Guarantor Name Account Type Relation to Date of Phone Billing Patient Address Ashwin Case Personal/Family 1930 [phone] [address] (Home) [address] [phone] [place], [place] (Work) [address] documented as of this encounter
--- OUTSIDE RECORDS SUMMARY | 2019-12-18 11:08 | XMS REPORT | Continuity of Care Document ---
:1930 External Reference #:[id number] Author Name Adelaide Penn M.D. (transmitted by agent of provider Jasmine Dewittt) Address [address] [place] [id number] Care Team Providers Name Role Phone Chloe Blevins MD - Internal Care Team Information Program Manager Transportation Medicine Rasheed Castellanos MD - Thoracic Care Team Information Program Manager Transportation [phone] Surgery (Cardiothoracic Vascular Surgery) Problems Active Problems Provider Date Heart valve replacement Adelaide Penn M.D. Onset: 04/07/2014 Benign essential hypertension Adelaide Penn M.D. 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 Onset: 05/29/2015 Paroxysmal atrial fibrillation Adelaide Penn M.D. Onset: 10/01/2015 Essential hypertension Adelaide Penn M.D. Onset: 10/01/2015 Cardiomyopathy, unspecified Adelaide Penn M.D. Onset: 10/01/2015 Other cardiomyopathies Adelaide Penn M.D. Onset: 11/27/2015 Aneurysm of thoracic aorta Adelaide Penn M.D. Onset: 05/27/2016 Paroxysmal atrial fibrillation Adelaide Penn M.D. Onset: 05/27/2016 Supraventricular premature beats Adelaide Penn M.D. Onset: 06/04/2018 Pulmonary hypertension due to left heart disease Adelaide Penn M.D. Onset: Mitral valve disorder Adelaide Penn M.D. Onset: 12/16/2019 Social History Type Date Description Comments Sex Unknown Tobacco Use Start: Unknown End: Former Cigarette Smoker Unknown Smoking Status Reviewed: 12/16/19 Former Cigarette Smoker ETOH Use Denies alcohol use Tobacco Use Start: Unknown End: Patient is a former Unknown smoker Recreational Drug Use Denies Drug Use Exercise Type/Frequency Exercises regularly 40mins daily Allergies, Adverse Reactions, Alerts Active Allergies Reaction Severity Comments Date Amiodarone nauaea 10/01/2015 Medications Active Medications SIG Qnty Indications Ordering Provider Date Metoprolol Tartrate 1 by mouth 60tabs Unknown 25mg twice a day Tablets Aspirin 1 by mouth Unknown 325mg Tablets every day Acetaminophen prn Unknown 500mg Tablets D3 Adult 1 by mouth Unknown 1000Unit Chewtabs every day Ramipril 1 by mouth Unknown 5mg Capsules every day Immunizations Description No Information Available Vital Signs Date Vital Result Comment 12/16/2019 11:03am Height 66.5 inches 5'6.50" Weight 171.00 lb w/ shoes Heart Rate 66 /min BP Systolic Sitting 136 mmHg lue BP Diastolic Sitting 66 mmHg lue BMI (Body Mass Index) 27.2 kg/m2 Ejection Fraction 50-55% 12/05/21 11/21/2019 2:24pm Height 66.5 inches 5'6.50" Weight 168.50 lb with shoes Heart Rate 70 /min BP Systolic Sitting 142 mmHg Lue reg cuff BP Diastolic Sitting 70 mmHg Lue reg cuff Respiratory Rate 18 /min BMI (Body Mass Index) 26.8 kg/m2 Ejection Fraction 45-50% ECHO 05/12/2018 Results Description No Information Available Procedures Date Code Description Status 12/05/2019 49013 ECHO Transthoracic, Real-Time 2D With Doppler And Color Completed Flow 12/05/2019 44541 ECHO Transthoracic, Real-Time 2D With Doppler And Color Completed Flow 11/21/2019 41735 EKG Tracing & Interpretation Completed Medical Devices Description No Information Available Encounters Type Date Location Provider Dx Diagnosis Office Visit 12/16/2019 [facility] Adelaide Penn, Z95.2 Presence of 11:20a Of Handle Machine Operator AT [facility] M.DPearl prosthetic heart valve I34.0 Nonrheumatic mitral (valve) insufficiency I34.2 Nonrheumatic mitral (valve) stenosis I27.22 Pulmonary hypertension due to left heart disease I10 Essential (primary) hypertension Office Visit 11/21/2019 2:40p [facility] Adelaide Penn, Z95.2 Presence of Of Rosa M Patel prosthetic heart valve I71.2 Thoracic aortic aneurysm, without rupture I42.9 Cardiomyopathy, unspecified I10 Essential (primary) hypertension Office Visit 10/28/2019 [facility] Vassilios S32.048D Oth fx fourth 1:00p Services Of Rosa M Fine MD lum vertebra, subs for fx w routn heal Office Visit 10/05/2019 [facility] Mindi Knight, S32.048A Oth fracture of 10:32a Assoc,pc PA-C fourth lumbar Hospitalists vertebra, init for clos fx Office Visit 10/04/2019 [facility] S32.040A Wedge 10:32a Assoc,pc Doto, TUFTING MACHINE OPERATOR SINGLE NEEDLE compression Hospitalists fracture of fourth lumbar vertebra, init I10 Essential (primary) hypertension Office Visit 10/03/2019 [facility] S32.040A Wedge 10:31a Assoc,pc [facility] Doto, compression Hospitalists TUFTING MACHINE OPERATOR SINGLE NEEDLE fracture of fourth lumbar vertebra, init I10 Essential (primary) hypertension Office Visit 10/02/2019 [facility] S32.040A Wedge 10:31a Assoc,pc Nati Doto, compression Hospitalists TUFTING MACHINE OPERATOR SINGLE NEEDLE fracture of fourth lumbar vertebra, init I10 Essential (primary) hypertension Office Visit 10/01/2019 Neurosurgery Sheyla Roach, S32.041A Stable burst 7:00a [facility] fracture of fourth lumbar vertebra, init Office Visit 10/01/2019 [facility] S32.048A Oth fracture of 10:31a Assoc,pc [facility] Doto, fourth lumbar Hospitalists TUFTING MACHINE OPERATOR SINGLE NEEDLE vertebra, init for clos fx R26.89 Other abnormalities of gait and mobility I10 Essential (primary) hypertension Assessments Date Code Description Provider 12/16/2019 Z95.2 Presence of prosthetic heart valve Adelaide Penn M.D. 12/16/2019 I34.0 Nonrheumatic mitral (valve) Adelaide Penn M.D. insufficiency 12/16/2019 I34.2 Nonrheumatic mitral (valve) stenosis Adelaide Penn M.D. 12/16/2019 I27.22 Pulmonary hypertension due to left Adelaide Penn M.D. heart disease 12/16/2019 I10 Essential (primary) hypertension Adelaide Penn M.D. 12/05/2019 Z95.2 Presence of prosthetic heart valve Adelaide Penn M.D. 12/05/2019 Z95.2 Presence of prosthetic heart valve Ica ECHO Schedule 12/05/2019 I71.2 Thoracic aortic aneurysm, without Adelaide Penn M.D. rupture 12/05/2019 I71.2 Thoracic aortic aneurysm, without Ica ECHO Schedule rupture 12/05/2019 I42.9 Cardiomyopathy, unspecified Adealide Penn M.D. 12/05/2019 I42.9 Cardiomyopathy, unspecified Ica ECHO Schedule 11/21/2019 Z95.2 Presence of prosthetic heart valve Adelaide Penn M.D. 11/21/2019 I71.2 Thoracic aortic aneurysm, without Adelaide Penn M.D. rupture 11/21/2019 I42.9 Cardiomyopathy, unspecified Adelaide Penn M.D. 11/21/2019 I10 Essential (primary) hypertension Adelaide Penn M.D. 10/28/2019 S32.048D Other fracture of fourth lumbar Vassilios MD [place] vertebra, subsequent encounter for fracture with routine healing 10/05/2019 S32.048A Other fracture of fourth lumbar Mindi Knight PA-C vertebra, initial encounter for closed fracture 10/04/2019 S32.040A Wedge compression fracture of fourth Courtney Nati Kirk, TUFTING MACHINE OPERATOR SINGLE NEEDLE lumbar vertebra, initial encounter for closed fracture 10/04/2019 I10 Essential (primary) hypertension Courtney Kirk, TUFTING MACHINE OPERATOR SINGLE NEEDLE 10/03/2019 S32.040A Wedge compression fracture of fourth Courtney Nati Kirk, TUFTING MACHINE OPERATOR SINGLE NEEDLE lumbar vertebra, initial encounter for closed fracture 10/03/2019 I10 Essential (primary) hypertension Courtney Kirk, TUFTING MACHINE OPERATOR SINGLE NEEDLE 10/02/2019 S32.040A Wedge compression fracture of fourth Courtney Nati Kirk, TUFTING MACHINE OPERATOR SINGLE NEEDLE lumbar vertebra, initial encounter for closed fracture 10/02/2019 I10 Essential (primary) hypertension Courtney Kirk, TUFTING MACHINE OPERATOR SINGLE NEEDLE 10/01/2019 S32.041A Stable burst fracture of fourth lumbar TONYA Bashir vertebra, initial encounter for closed fracture 10/01/2019 S32.048A Other fracture of fourth lumbar Courtney Kirk NP vertebra, initial encounter for closed fracture 10/01/2019 R26.89 Other abnormalities of gait and Courtney Kirk NP mobility 10/01/2019 I10 Essential (primary) hypertension Courtney Kirk NP Plan of Treatment Future Appointment(s):02/15/2020 1:00 pm - Monique Fine MD at [facility]12/16/2019 - Adelaide Penn M.D.Z95.2 Presence of prosthetic heart valveComments:The aortic valve is working well (prosthetic valve)Follow up:OV annual.I34.0 Nonrheumatic mitral (valve) insufficiencyComments:Mild leak.I34.2 Nonrheumatic mitral (valve) stenosisComments:Murmur I heard is from calcification of the valve.Mild stenosis.I27.22 Pulmonary hypertension due to left heart diseaseComments:Mildly elevated to to valve issues and stiff older heart.Recommendations:Continue to avoid excessive salt.I10 Essential (primary) hypertensionComments:Well controlled today. Functional Status Description No Information Available Mental Status Description No Information Available Referrals Description No Information Available
--- OUTSIDE RECORDS SUMMARY | 2019-12-18 11:08 | XMS REPORT | Summary of Care ---
:1930 Author Organization [facility] Address [address] [address] Care Team Providers Name Role Phone Chloe Blevins MD Primary Care Provider Reason for Visit Reason Comments Hearing Aid Check Encounter Details Date Type Department Care Team Description 12/14/2019 Office Visit [facility] - Jorge Luis Hayes, Sensorineural hearing [place] AuD loss, asymmetrical 10 [facility] [address] (Primary Dx) [place] [address] [address] [address] [phone] Allergies No Known Allergiesdocumented as of this [...] in this encounter Progress Notes Jorge Luis Hayes AuD - 12/14/2019 1:30 PM ESTFollowing today's comprehensive hearing evaluation the patient was seen for a hearing aid check and ear mold pick-up. Prior to updating the patient's programming the patient's old ear molds were removed and replaced with the new ear molds. The new ear molds were measured to fit. Once correctly sized and inserted the devices were connected to [employer] software and the latest audiometric test results were installed. Feedback tests were re-administered to coincide with her new molds. Feedback results were excellent, AU. No additional programming was needed as the patient is happy with the overall soundquality of her updated devices. She will continue to function with the previously installed programsand VC switch. After updating the patient's current devices the patient requested that we attempt toupdate her old hearing aids. Initial inspection revealed the left device had been switched to fit her right ear. This was confirmed with Compass settings. Her old right device is broken and unable to connect. The prior device was readjusted to fit her left ear and the prior left mold was installed. Once coupled to the mold the device was inserted and program settings were updated to match today's audiometric results. No additional programs were added at the patient's request. After both sets of devices were updated we spent time reviewing insertion/removal of the new ear molds. The patient demonstrated difficulty with insertion into the helix. We reviewed different techniques and took supporting photos/videos of proper insertion for the patient. The patient was encouraged to practice proper insertion and report back if difficulty continues. If continued difficulty is reported the helix portion of the mold should slowly be grinded down for easier insertion. Prior to leaving the patient was provided the bill for the new molds of $150 and instructed to call with any questions/concerns.Electronically signed by Jorge Luis Hayes AuD at 2019 3:02 PM ESTdocumented in this encounter Plan of Treatment Name Type Priority Associated Diagnoses Order Schedule HEARING AID RECHECK Procedures Routine Sensorineural Hearing Ordered: 12/14 Loss, Asymmetrical Health Maintenance Due Date Last Done [...] this topic documented as of this encounter Results Not on filedocumented in [...] Billing Patient Address Ashwin Case Personal/Family 1930 [address] (Home) [facility] [phone] [place], [place] (Work) [address] documented as of this encounter
--- OUTSIDE RECORDS SUMMARY | 2019-12-18 11:08 | XMS REPORT ---
:1930 Author Organization [facility] Care Team Providers Name Role Phone Unavailable Unavailable Unavailable Problems Condition Condition Condition Status Onset Resolution Last Treating Comments Name Details Category Date Date Treatment Clinician Date Pain frequent Pain Mgmt Resolve 2018-112019-10-12 Teri pain d 12-07 08:45:00 (Junior) 08:45: Gong 00 [id number] Cardio edema Cardiovasc Resolve 2018-112019-10-12 Teri ular d 12-07 08:45:00 (Junior) 08:45: Gong 00 [id number] Respiratory dyspnea Respirator Resolve 2018-112019-10-12 Teri present y d 12-07 08:45:00 (Junior) 08:45: Gong 00 [id number] Endo/Marcell anti-coagul Endo/Marcell Resolve 2018-112019-10-12 Teri ation d 12-07 08:45:00 (Junior) therapy 08:45: Gong 00 [id number] Sensory impaired Sensory Resolve 2018-112019-10-12 Teri hearing d 12-07 08:45:00 (Junior) 08:45: Gong 00 [id number] Integument skin Integument Resolve 2018-112019-10-12 Teri integrity d 12-07 08:45:00 (Junior) risk 08:45: Gong 00 [id number] Elimination urinary Eliminatio Resolve 2018-112019-10-12 Teri incontinenc n d 12-07 08:45:00 (Junior) e 08:45: Gong 00 [id number] Elimination bowel Eliminatio Resolve 2018-112019-10-12 Teri incontinenc n d 12-07 08:45:00 (Junior) e 08:45: Ogng 00 [id number] Neuro confusion Neuro/Emot Resolve 2018-112019-10-12 Teri present ion d 12-07 08:45:00 (Junior) 08:45: Gong 00 [id number] Activity ADL Activity Resolve 2018-112019-10-12 Teri assistance d 12-07 08:45:00 (Junior) required 08:45: Gong 00 [id number] Activity self-care Activity Resolve 2018-112019-10-12 Teri deficit d 12-07 08:45:00 (Junior) 08:45: Gong 00 [id number] Safety fall risk Safety Resolve 2018-112019-10-12 Teri factor d 12-07 08:45:00 (Junior) present 08:45: Gong 00 [id number] Safety risk for Safety Resolve 2018-112019-10-12 Teri hospitaliza d 12-07 08:45:00 (Junior) tion 08:45: Gong 00 [id number] Safety can be left Safety Resolve 2018-112019-10-12 Teri alone for d 12-07 08:45:00 (Junior) only short 08:45: Gong periods 00 [id number] Medication oral med Meds Resolve 2018-112019-10-12 Teri assistance d 12-07 08:45:00 (Junior) required 08:45: Gong 00 [id number] Musculoskel transfer Musculoske Resolve 2018-112019-10-12 Teri etal assistance letal d 12-07 08:45:00 (Junior) required 08:45: Gong 00 [id number] Musculoskel requires Musculoske Resolve 2018-112019-10-12 Teri etal human letal d 12-07 08:45:00 (Junior) assist to 08:45: Gong leave home 00 [id number] Allergies, Adverse Reactions, Alerts Allergy Allergy Type [...]
--- OUTSIDE RECORDS SUMMARY | 2019-12-18 11:08 | XMS REPORT | Continuity of Care Document ---
:1930 External Reference #:[id number] Author Name Adelaide Penn M.D. (transmitted by agent of provider Tita Camejo) Address [facility] [place] [address] Care Team Providers Name Role Phone Chloe Blevins MD - Internal Care Team Information Electrical Appliance Mechanic Medicine Rasheed Castellanos MD - Thoracic Care Team Information Electrical Appliance Mechanic Surgery (Cardiothoracic Vascular Surgery) Problems Active Problems [...] premature beats Adelaide Penn M.D. Onset: 06/04/2018 Social History Type Date Description Comments Sex Unknown Tobacco Use Start: Unknown End: Former Cigarette Smoker Unknown Smoking Status Reviewed: 11/21/19 Former Cigarette Smoker ETOH Use Denies alcohol use Tobacco Use Start: Unknown End: Patient is a former Unknown smoker Recreational Drug Use Denies Drug Use Exercise Type/Frequency Exercises regularly 40mins daily Allergies, Adverse Reactions, Alerts Active Allergies Reaction Severity Comments Date Cherries Hives Moderate Ripe cherries tend to get hives 08/20/2012 Amiodarone nauaea 10/01/2015 Medications Active Medications SIG Qnty Indications Ordering Provider Date Metoprolol Tartrate 1 by mouth 60tabs Unknown 25mg twice a day Tablets Acetaminophen prn Unknown 500mg Tablets D3 Adult 1 by mouth Unknown 1000Unit Chewtabs every day Ramipril 1 by mouth Unknown 5mg Capsules every day Immunizations Description No Information Available Vital Signs Date Vital Result Comment 11/21/2019 2:24pm Height 66.5 inches 5'6.50" Weight 168.50 lb with shoes Heart Rate 70 /min BP Systolic Sitting 142 mmHg Lue reg cuff BP Diastolic Sitting 70 mmHg Lue reg cuff Respiratory Rate 18 /min BMI (Body Mass Index) 26.8 kg/m2 Ejection Fraction 45-50% ECHO 05/12/2018 10/28/2019 1:59pm Height 66.5 inches 5'6.50" Weight 160.00 lb Heart Rate 76 /min BP Systolic 148 mmHg BP Diastolic 80 mmHg Pain Level 4 Lower righ hand side of back BMI (Body Mass Index) 25.4 kg/m2 Results Description No Information Available Procedures Date Code Description Status 11/21/2019 07712 EKG Tracing & Interpretation Completed Medical Devices Description No Information Available Encounters Type Date Location Provider Dx Diagnosis Office Visit 10/28/2019 [facility] S32.048D Oth fx fourth lum 1:00p Services Of Rosa M Fine MD vertebra, subs for fx w routn heal Office Visit 10/05/2019 [facility] Mindi Knight, S32.048A Oth fracture of 10:32a ,pc PA-C fourth lumbar Hospitalists vertebra, init for clos fx Office Visit 10/04/2019 [facility] S32.040A Wedge compression 10:32a Asszena,horace Colóno, STORE SALES LEADER fracture of Hospitalists fourth lumbar vertebra, init I10 Essential (primary) hypertension Office Visit 10/03/2019 [facility] S32.040A Wedge 10:31a Assoc,pc Nati Doto, compression Hospitalists STORE SALES LEADER fracture of fourth lumbar vertebra, init I10 Essential (primary) hypertension Office Visit 10/02/2019 [facility] S32.040A Wedge 10:31a Assoc,pc Nati Doto, compression Hospitalists STORE SALES LEADER fracture of fourth lumbar vertebra, init I10 Essential (primary) hypertension Office Visit 10/01/2019 Neurosurgery Sheyla Roach, S32.041A Stable burst 7:00a Services Of Storeperson PA fracture of fourth lumbar vertebra, init Office Visit 10/01/2019 [facility] S32.048A Oth fracture of 10:31a Assoc,pc Nati Doto, fourth lumbar Hospitalists STORE SALES LEADER vertebra, init for clos fx R26.89 Other abnormalities of gait and mobility I10 Essential (primary) hypertension Assessments Date Code Description Provider 11/21/2019 Z95.2 Presence of prosthetic heart valve Adelaide Penn M.D. 11/21/2019 I71.2 Thoracic aortic aneurysm, without Adelaide Penn M.D. rupture 11/21/2019 I42.9 Cardiomyopathy, unspecified Adelaide Penn M.D. 10/28/2019 S32.048D Other fracture of fourth lumbar Vassilios MD Babatunde vertebra, subsequent encounter for fracture with routine healing 10/05/2019 S32.048A Other fracture of fourth lumbar Mindi Knight, PA-C vertebra, initial encounter for closed fracture 10/04/2019 S32.040A Wedge compression fracture of fourth Courtney Nati Doto, STORE SALES LEADER lumbar vertebra, initial encounter for closed fracture 10/04/2019 I10 Essential (primary) hypertension [facility], STORE SALES LEADER 10/03/2019 S32.040A Wedge compression fracture of fourth Courtney Nati Doto, STORE SALES LEADER lumbar vertebra, initial encounter for closed fracture 10/03/2019 I10 Essential (primary) hypertension [facility] Doto, STORE SALES LEADER 10/02/2019 S32.040A Wedge compression fracture of fourth Courtney Nati Doto, STORE SALES LEADER lumbar vertebra, initial encounter for closed fracture 10/02/2019 I10 Essential (primary) hypertension Courtney Nati Doto, STORE SALES LEADER 10/01/2019 S32.041A Stable burst fracture of fourth lumbar TONYA Bashir vertebra, initial encounter for closed fracture 10/01/2019 S32.048A Other fracture of fourth lumbar Courtney Kirk NP vertebra, initial encounter for closed fracture 10/01/2019 R26.89 Other abnormalities of gait and Courtney Kirk NP mobility 10/01/2019 I10 Essential (primary) hypertension Courtney Kirk NP Plan of Treatment Future Appointment(s):12/16/2019 11:20 am - Adelaide Penn M.D. at [facility] [place]12/05/2019 2:30 pm - Traveling ECHO 1 at [facility]02/15/2020 1:00 pm - Monique Fine MD at [facility]11/21/2019 - Adelaide Penn M.D.Z95.2 Presence of prosthetic heart valveNew Orders:Echocardiogram, Scheduled: 12/05/19Comments:Stable function based on my exam. Good function on echo April 2018.Follow up:OV after echo. OV 1 year (or earlier if something new on echo).I71.2 Thoracic aortic aneurysm, without ruptureNew Orders:Echocardiogram, Scheduled: 12/05/19Comments: s/p aortic root replacement.Follow up:Keep f/u with Dr Blevins.Recommendations: Goals: keep systolic BP below 130 and diastolic BP below 90. A little high since your fall, pain could contribute.I42.9 Cardiomyopathy, unspecifiedNew Orders:Echocardiogram, Scheduled: 12/05/19Comments:mild weakening. Functional Status Description No Information Available Mental Status Description No Information Available Referrals Description No Information Available
--- OUTSIDE RECORDS SUMMARY | 2019-12-18 11:08 | XMS REPORT ---
:1930 Author Organization [facility] Care Team Providers Name Role Phone Unavailable Unavailable Unavailable Problems Condition Condition Condition Status Onset Resolution Last Treating Comments Name Details Category Date Date Treatment Clinician Date Pain frequent Pain Mgmt Resolve 2018-112019-10-12 Teri pain d 12-07 08:45:00 (Junior) 08:45: Gong 00 [id number] Cardio edema Cardiovasc Resolve 2018-112019-10-12 Teri ular d 12-07 08:45:00 (Junior) 08:45: Gong 00 [id number] Respiratory dyspnea Respirator Resolve 2018-112019-10-12 Teri present y d 12-07 08:45:00 (Junior) 08:45: Gong 00 [id number] Endo/Marcell anti-coagul Endo/Marcell Resolve 2018-112019-10-12 Teri ation d 12-07 08:45:00 (Junior) therapy 08:45: Gnog 00 [id number] Sensory impaired Sensory Resolve 2018-112019-10-12 Teri hearing d 12-07 08:45:00 (Junior) 08:45: Gong 00 [id number] Integument skin Integument Resolve 2018-112019-10-12 Teri integrity d 12-07 08:45:00 (Junior) risk 08:45: Gong 00 [id number] Elimination urinary Eliminatio Resolve 2018-112019-10-12 Teri incontinenc n d 12-07 08:45:00 (Junior) e 08:45: Gong 00 [id number] Elimination bowel Eliminatio Resolve 2018-112019-10-12 Teri incontinenc n d 12-07 08:45:00 (Junior) e 08:45: Gong 00 [id number] Neuro confusion Neuro/Emot Resolve 2018-112019-10-12 Teri present ion d 12-07 08:45:00 (Junior) 08:45: Gong 00 [id number] Activity ADL Activity Resolve 2018-112019-10-12 Teri assistance d 12-07 08:45:00 (Junior) required 08:45: Gong 00 [id number] Activity self-care Activity Resolve 2018-112019-10-12 Teri deficit d 12-07 08:45:00 (Junior) 08:45: Gong 00 [id number] Safety fall risk Safety Resolve 2018-112019-10-12 Teri factor d 12-07 08:45:00 (Junior) present 08:45: Gong 00 [id number] Safety risk for Safety Resolve 2018-112019-10-12 Teri hospitaliza d 12-07 08:45:00 (Junior) tion 08:45: Gong 00 [id number] Safety can be left Safety Resolve 2018-112019-10-12 Teri alone for d 12-07 08:45:00 (Junior) only short 08:45: Gong periods 00 [id number] Medication oral med Meds Resolve 2018-112019-10-12 Teri assistance d 12-07 08:45:00 (Junior) required 08:45: Gong 00 [id number] Musculoskel transfer Musculoske Resolve 2018-112019-10-12 Teri etal assistance letal d 12-07 08:45:00 (Junior) required 08:45: Gong 00 [id number] Musculoskel requires Musculoske Resolve 2018-112019-10-12 Teri etal human letal d 12-07 08:45:00 (Junior) assist to 08:45: Gong leave home 00 [id number] Allergies, Adverse Reactions, Alerts Allergy Allergy Type [...]
--- OUTSIDE RECORDS SUMMARY | 2019-12-18 11:08 | XMS REPORT | Summary of Care ---
:1930 Author Organization [facility] Address [address] [address] Care Team Providers Name Role Phone Chloe Blevins MD Primary Care Provider Reason for Visit Reason Comments Hearing Aid Check Encounter Details Date Type Department Care Team Description 11/17/2019 Office Visit [facility] - Jorge Luis Hayes, Sensorineural hearing [place] AuD loss, bilateral (Primary [address]) [place] [address] [place] [address] [phone] Allergies No Known Allergiesdocumented as of this encounter (statuses as of 11/17/2019) Medications Medication Sig Dispensed Refills Start Date [...] as of this encounter (statuses as of 11/17/2019) Active Problems Problem Noted Date Sensory hearing [...] as of this encounter (statuses as of 11/17/2019) Immunizations Name Administration Dates Next Due Influenza [...] Progress Notes Jorge Luis Hayes, [place] - 11/17/2019 1:30 PM ESTThe patient was accompanied to today' s hearing aid check by her family member and reported vascular technologist sonographer, Christoph. According to the patient she had experienced an inability to effectively communicate at her holiday gatherings and is particular distraught about her declined performance. Despite her recent appointment and the subjective improvement in amplification following said appointments programming changes the patient believes the devices need further adjustments. Initial inspection of the devices revealed no debris on the devices. Listening check is consistent with prior appointments amplification. The importance of an updated hearing evaluation was stressed and a hearing screening was performed. Otoscopy was performed AU, results of which revealed a clear canal and intact tympanic membrane on theright and what appears to be a thin wax membrane covering the left external auditory canal. Due to the presence of the thin cerumen membrane, visualization of the left tympanic membrane was not achieved. Immittance testing revealed a type A tympanogram on the right and a type B tympanogram on the left. Results of today's Audiometric hearing screening revealed a reduction in both mid frequency thresholds and overall speech discrimination abilities (24 % at 90 dB). Both right and left ears were identified with SNHL, which is of interest as otoscopy and tympanometry suggests possible left unilateral outer/ middle ear involvement. Following testing the patient's devices were connected to Nitrone[employer] software and updated to today's results. She reports an improvement in the overall volume following updating. The patient and Christoph were informed of the findings and counseled on realistic expectations. It wasalso recommended that the patient follow-up with her PCP/ENT for left unilateral cerumen extraction.Following cerumen extraction and the obtainment of her custom ear molds the patient should go through a comprehensive hearing evaluation to determine the reliability to today's findings and make any further programming adjustments. Christoph can be reached at [phone]. documented in this encounter Plan of Treatment Name Type Priority Associated Diagnoses Order Schedule HEARING AID RECHECK Procedures Routine Sensorineural Hearing Ordered: 11/17 Loss, Bilateral Health Maintenance Due Date Last Done Comments [...] encounter Visit Diagnoses Diagnosis Sensorineural hearing loss, bilateral documented in this encounter Insurance Payer Benefit Plan / Subscriber ID Effective Dates Phone Address Type Group MEDICARE MEDICARE PART A xxxxxxxxxxx 1997-Present Medicare & B [employer] COMMERCIAL AETNA xxxxxxxxxx 1998-Present A[employer] Guarantor Name Account Type Relation to Date of Phone Billing Patient Address Ashwin Case Personal/Family 1930 [phone] [address] (Home) [address] [phone] [place], [place] (Work) [address] documented as of this encounter
--- OUTSIDE RECORDS SUMMARY | 2019-12-18 11:08 | XMS REPORT | Continuity of Care Document ---
:1930 External Reference #:[id number] Author Name Monique Fine MD (transmitted by agent of provider Melisa Nix ) Address [address] [place] [address] Care Team Providers Name Role Phone Chloe Blevins MD - Internal Care Team Information Slasher Sawyer Medicine Rasheed Castellanos MD - Thoracic Care Team Information Slasher Sawyer [phone] Surgery (Cardiothoracic Vascular Surgery) Problems Active Problems [...] Former Cigarette Smoker Unknown Smoking Status Reviewed: 10/28/19 Former Cigarette Smoker ETOH Use Denies alcohol [...] Available Vital Signs Date Vital Result Comment 10/28/2019 1:59pm Height 66.5 inches 5'6.50" Weight 160.00 lb Heart Rate 76 /min BP Systolic 148 mmHg BP Diastolic 80 mmHg Pain Level 4 Lower righ hand side of back BMI (Body Mass Index) 25.4 kg/m2 06/04/2018 12:45pm Height 66.5 inches 5'6.50" Weight 177.00 lb w/o shoes Heart Rate 62 /min BP Systolic Sitting 136 mmHg Rue lg cuff BP Diastolic Sitting 90 mmHg Rue lg cuff BP Systolic Standing 130 mmHg Rue BP Diastolic Standing 86 mmHg Rue Respiratory Rate 16 /min BMI (Body Mass Index) 28.1 kg/m2 Ejection Fraction 45-50% as of 04/2018 echo Results Description No Information Available Procedures Description No Information Available Medical Devices Description No Information Available Encounters Type Date Location Provider Dx Diagnosis Office Visit 10/28/2019 [facility] S32.048A Oth fracture of 1:00p Services Of Rosa M Fine MD fourth lumbar vertebra, init for clos fx Office Visit 10/05/2019 [facility] Mindi Knight, S32.048A Oth fracture of 10:32a horace Barber PA-C fourth lumbar Hospitalists vertebra, init for clos fx Office Visit 10/04/2019 [facility] S32.040A Wedge compression 10:32a horace Barber RN [place] LVN fracture of Hospitalists fourth lumbar vertebra, init I10 Essential (primary) hypertension Office Visit 10/03/2019 [facility] S32.040A Wedge 10:31a Assoc,pc Nati Doto, compression Hospitalists RN [place] LVN fracture of fourth lumbar vertebra, init I10 Essential (primary) hypertension Office Visit 10/02/2019 [facility] Courtney S32.040A Wedge 10:31a Assoc,pc Nati Doto, compression Hospitalists RN [place] LVN fracture of fourth lumbar vertebra, init I10 Essential (primary) hypertension Office Visit 10/01/2019 [facility] Courtney S32.048A Oth fracture of 10:31a Assoc,pc Nati Doto, fourth lumbar Hospitalists RN [place] LVN vertebra, init for clos fx R26.89 Other abnormalities of gait and mobility I10 Essential (primary) hypertension Assessments Date Code Description Provider 10/28/2019 S32.048A Other fracture of fourth lumbar Monique Fine MD vertebra, initial encounter for closed fracture 10/05/2019 S32.048A Other fracture of fourth lumbar Mindi Knight PA-C vertebra, initial encounter for closed fracture 10/04/2019 S32.040A Wedge compression fracture of fourth Courtney Nati Doto, RN OR LVN lumbar vertebra, initial encounter for closed fracture 10/04/2019 I10 Essential (primary) hypertension Courtney Nati Doto, RN [place] LVN 10/03/2019 S32.040A Wedge compression fracture of fourth Courtney Nati Doto, RN [place] LVN lumbar vertebra, initial encounter for closed fracture 10/03/2019 I10 Essential (primary) hypertension Courtney Nati Doto, RN [place] LVN 10/02/2019 S32.040A Wedge compression fracture of fourth Courtney Nati Doto, RN [place] LVN lumbar vertebra, initial encounter for closed fracture 10/02/2019 I10 Essential (primary) hypertension Courtney Nati Doto, RN [place] LVN 10/01/2019 S32.048A Other fracture of fourth lumbar Courtney Nati Doto, RN [place] LVN vertebra, initial encounter for closed fracture 10/01/2019 R26.89 Other abnormalities of gait and Courtney Nati Doto, RN OR LVN mobility 10/01/2019 I10 Essential (primary) hypertension Courtney Nati Kirk, RN OR LVN Plan of Treatment Future Appointment(s):11/21/2019 2:40 pm - Adelaide Penn M.D. at [facility]10/28/2019 - CHRISTIANO Wood32.048A Oth fracture of fourth lumbar vertebra, init for clos fxFollow up:RV in 1 month Functional Status Description No Information Available Mental Status Description No Information Available Referrals Description No Information Available
[2019-12-18 11:21] LABS: ABS Basophils 0.1 10^3/ul (0-0.2); ABS Eosinophils 0.1 10^3/ul (0-0.6); ABS Lymphocytes 1.7 10^3/ul (1.0-4.8); ABS Monocytes 0.7 10^3/ul (0-0.8); ABS Neutrophils 5.2 10^3/ul (1.5-7.7); Eosinophil % 1.3 %; Hematocrit 42 % (35-47); Hemoglobin 13.8 g/dL (12.0-16.0); Lymphocyte % 22.2 %; Mean Corpuscular HGB Conc 33 g/dL (31-36); Mean Corpuscular Hemoglobin 29 pg (27-31); Mean Corpuscular Volume 89 fL (80-97); Mean Platelet Volume 8.7 fL (7.4-10.4); Nucleated Red Blood Cells % 0.1; Platelet Count 783 10^3/uL (150-450); Red Blood Count 4.71 10^6 /uL (3.70-4.87); Red Cell Distribution Width 15 % (10-15); White Blood Count 7.7 10^3/uL (3.5-10.8)
[2019-12-18 11:38] LABS: ALT 13 U/L (7-52); AST 19 U/L (13-39); Albumin/Globulin Ratio 1.4 (1-3); Alkaline Phosphatase 84 U/L (34-104); Anion Gap 7 mmol/L (2-11); BUN/Creatinine Ratio 28.1 (8-20); Blood Urea Nitrogen 27 mg/dL (6-24); C Reactive Protein < 1.00 mg/L (<8.01); CO2 Carbon Dioxide 26 mmol/L (22-32); Chloride 108 mmol/L (101-111); EGFR African American 66.5 (>60); Globulin 2.8 g/dL (2-4); Glucose 102 mg/dL (70-100); Potassium 4.6 mmol/L (3.5-5.0); Sodium 141 mmol/L (135-145); Total Protein 6.8 g/dL (6.4-8.9)
[2019-12-18] MEDS ORDERED: HYDROcodone/ACETAMIN 5-325 MG* 1 TAB PO ONE (11:50)
[2019-12-18] MEDS ORDERED: Iodixanol* (CONTRAST) 320 MG/ML 100 ML SDV IV ONE (12:14)
[2019-12-18 12:31] LABS: Urine Appearance Clear; Urine Bilirubin Negative (Negative); Urine Blood Negative (Negative); Urine Color Straw; Urine Glucose Negative (Negative); Urine Ketones Negative (Negative); Urine Nitrite Negative (Negative); Urine Protein Negative (Negative); Urine Specific Gravity 1.004 (1.010-1.030); Urine Urobilinogen Negative (Negative)
[2019-12-18] MEDS ORDERED: oxyCODONE/Acetamin 5/325 MG* TAB PO PRN ×2 (14:58→15:04)
[2019-12-18] MEDS ORDERED: Ondansetron INJ* 2 MG/ML VIAL IV PRN (14:58)
[2019-12-18] MEDS ORDERED: Senna TAB 8.6 mg* TAB PO PRN (14:58)
[2019-12-18] MEDS ORDERED: Al Hydrox/Mg Hydrox/Simet LIQ* 30 ML UDC PO PRN (14:58)
[2019-12-18] MEDS ORDERED: hydrALAZINE IV* 20 MG/ML VIAL IV SLOW PU PRN (15:02)
[2019-12-18] MEDS ORDERED: Cyclobenzaprine TAB* 10 MG PO PRN (15:03)
[2019-12-18] MEDS: Ketorolac INJ* 30 MG/ML 1 ML VIAL IV PUSH PRN ×2 (15:34→21:44)
--- NOTE | 2019-12-18 18:35 | HP ---
CC: Dr. Blevins; Dr. Fine * HISTORY AND PHYSICAL: DATE OF ADMISSION: 12/18/19 PROVIDER: TONYA Obrien ATTENDING PHYSICIAN WHILE IN THE HOSPITAL: Dr. Alda Vazquez * (dictated by TONYA Obrien). PRIMARY CARE PROVIDER: Dr. Blevins. OUTPATIENT NEUROSURGEON: Dr. Fine. CHIEF COMPLAINT: Fall at home. HISTORY OF PRESENT ILLNESS: Ashwin Case is an 89-year-old white female with past medical history significant for aortic valve disease, osteoarthritis, hypertension, recent L4 compression fracture, history of DVT, not currently on anticoagulation, who presents to the emergency department today after a fall at home. The patient tells me that she was standing in her kitchen and turned to face the other direction and lost her footing and was not firmly grasping her walker while trying to make this turn. She then fell to the floor, grabbing her walker and a chair down with her on top of her. She was able to get up off the floor and ambulate after this; however, when her friend who is also her caregiver came to the house, called EMS to bring her to the emergency department. The patient was not initially in any pain, though she has progressively started to have pain in her bottom as well as on her right aspect of her thorax. She denies chest pain, difficulty breathing, head trauma, loss of consciousness, visual changes, neck pain. She has chronic lower extremity pain which she tells me gets better while they are elevated when she is asleep. She additionally tells me that she still has her TLSO brace at home; however, she has not been consistently wearing it more recently and her next scheduled appointment for her recent L4 compression fracture from September was not closely followed up again with Dr. Fine until February. ED COURSE: The patient arrived to the emergency department via EMS. She was found to have minimally displaced rib fractures and new L3 compression fracture in addition to some changes to her L4 fracture. They patient was seen in the emergency department, gave a dose of 5 mg/325 mg of [place] and asked the hospitalist to evaluate the patient for admission. PAST MEDICAL HISTORY: 1. Aortic valve disorder. 2. Osteoarthritis. 3. Hypertension. 4. L4 compression fracture in September 2019. 5. Chronic lower extremity edema. 6. Paroxysmal atrial fibrillation. 7. Prior history of DVT in 2009, no longer on anticoagulation. PAST SURGICAL HISTORY: 1. Aortic valve replacement x2, bioprosthetic valve used. 2. Left hip ORIF. 3. Cholecystectomy. 4. Appendectomy. HOME MEDICATIONS: 1. Tylenol 1000 mg p.o. q.6 hours p.r.n. pain. 2. Ramipril 5 mg p.o. at bedtime. 3. Metoprolol tartrate 25 mg p.o. b.i.d. 4. Vitamin D3 1000 units p.o. daily. 5. Aspirin 325 mg p.o. daily. ALLERGIES: No known drug allergies. FAMILY HISTORY: Father with prostate cancer at age 62. Mother with pneumonia at age 37. Neither parents had history of heart disease. SOCIAL HISTORY: The patient lives alone. She does not have any children. She has never been . 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 She drinks only on holidays. She smoked only for 1 to 2 years of her life and quit at the age of 25 and denies illicit drug use. The patient's friend, Laurel De La Cruz is her surrogate medical decision maker should she need one. Her home phone number is [phone] and her cellphone number is [phone]. PHYSICAL EXAMINATION GENERAL: An elderly white female, lying in hospital bed, appearing comfortable , in no acute distress. VITAL SIGNS: Temperature 98.7 degrees Fahrenheit; pulse rate 77; respiratory rate is 19; oxygen saturation 97% on room air; blood pressure 160/109, later 152 /77. HEENT: Head: Normocephalic, atraumatic. Eyes: PERRL. Sclerae anicteric. ENT: Mucous membranes moist. NECK: Full range of motion. Trachea midline. LUNGS: Clear to auscultation throughout. CARDIO: Regular rate and rhythm without murmurs, rubs, or gallops. ABDOMEN: Soft, nontender, nondistended. EXTREMITIES: Trace edema to bilateral lower extremities, nonpitting. No clubbing or cyanosis. NEURO: The patient is alert and oriented x3. No focal deficits. Able to move all extremities. SKIN: Approximately 5 cm diameter hematoma on left gluteus which is purple due to ecchymosis and is hard to palpation and minimally tender to palpation. DIAGNOSTIC STUDIES/LAB DATA: White blood cell count 7.7, hemoglobin 13.8, hematocrit 42, platelet count 783. Sodium 141, potassium 4.6, chloride 108, carbon dioxide 26, anion gap 7, BUN 27, creatinine 0.96, glucose 102, calcium 11. LFTs unremarkable. CRP less than 100. Urinalysis unremarkable. Femur x-ray, impression: Osteopenia with no displaced fracture. If pain persists, further imaging is recommended. Status post left hip ORIF. Hip/pelvis x-ray, osteopenia with no displaced fracture identified. Status post left hip ORIF. Ribs with chest x-ray, impression: 1. Increased soft tissue attenuation in the apex of the right hemithorax. An underlying neoplasm is not excluded. Minimally displaced right 7th through 9th rib fractures with no large pneumothorax (I have discussed this report with Dr. Alvares and he notes that the rib numbers noted in the CT are the correct rib numbers and these are incorrect). 2. Postoperative changes. 3. Linear bilateral mid lung zone airspace opacification (atelectasis favor that). Chest/abdomen/pelvis CT, impression: 1. The redundant and tortuous appearance of the innominate artery and its proximal branching vessels accounts for the right apical density on recent chest radiograph. No lung mass identified. 2. Minimally displaced right 8th through 10th rib fractures. 3. Sclerotic appearing T3 compression fracture resulting in 10% vertebral body height loss. No bony retropulsion. 4. Sclerotic L4 compression fracture with progressive 50% vertebral body height loss and moderate body retropulsion. 5. Fusiform abdominal aortic aneurysm measures up to 4.2 cm. 6. A left gluteal subcutaneous soft tissue density measures up to 4.8 cm. In the context of trauma, this may be patient representative of a hematoma. 7. There is a 1 cm nodule in the right lobe of the thyroid. 8. Mild cardiomegaly, status post AVR. Descending aorta is ectatic. Cervical spine CT, impression: 1. No cervical spine fracture. Varying degree of multilevel spondylosis results in at least moderate spinal canal stenosis from C3-C4 through C6-C7. There is severe multilevel neural foraminal stenosis. 2. T3 compression fracture described on chest CT. 3. Heterogeneous appearance of the enlarged right lobe of the thyroid. This could be better characterized by dedicated ultrasound of the neck. ASSESSMENT AND PLAN: Ashwin Case is an 89-year-old white female with past medical history significant for recent L4 compression fracture, aortic valve disorder, hypertension, history of deep vein thrombosis and paroxysmal atrial fibrillation, who presents to the emergency department today after a fall at home. The patient will be admitted to [facility] for: 1. Mechanical fall. The patient had a mechanical fall at home likely related to an inappropriate use of a walker with ambulation. OT and PT has been ordered and I will continue his pain control with p.r.n. oxycodone and Toradol. The patient has residual fractures and hematoma as described below. 2. Lumbar compression fractures. The patient had a previous L4 compression fracture at previous hospitalization in September 2019. She still has her TLSO brace and we will be utilizing this while she is here in the hospital. The L3 compression fracture is new and L4 compression fracture does have some changes based on her last images, but it is unclear how new these changes are. Dr. Fine has been aware of this case and he recommended a CT of the spine which has already been performed with the results as above. TLSO bracing should be used whenever the patient is out of bed or sitting and Dr. Fine ' consultation is appreciated. 3. Left gluteus hematoma. This hematoma is likely secondary to the patient's fall from a standing height. This is characterized on a CT scan. I did not believe a soft tissue ultrasound is needed at this time. We will continue to monitor the patient's H and H and it is currently 4.8 cm in diameter, we will ensure this is not enlarging. 4. Hypercalcemia. I have ordered an SPEP and UPEP. 5. Thrombocytosis. This patient has had thrombocytosis since July 2019 and has continued to rise and this should likely be followed outpatient as the patient has no other blood count abnormalities. Though as previously mentioned , I am checking SPEP and UPEP due to hypercalcemia. 6. Rib fractures. The patient has right-sided minimally displaced rib fractures. This is also contributing to her right-sided pain. At this time, she tells me she has no difficulty breathing. There is no large pleural effusion or pneumothorax on chest x-ray and we will continue to monitor this. I will order incentive spirometry as well to combat her risk of atelectasis and pain control as per described above. 7. Incidental thyroid nodule. The thyroid nodule was found incidentally on the scans and perhaps a thyroid ultrasound should be performed as an outpatient after discharge. 8. Paroxysmal atrial fibrillation. I will continue the patient's home metoprolol. She does not take anticoagulation. It appears, she was previously on Coumadin at least 9 years ago and she no longer takes this. 9. Hypertension. I will continue the patient's home ramipril. She is hypertensive in the emergency department. I suspect this is likely related to acute pain control. As we continue to monitor her pain control, I suspect this will improve, but I will order a p.r.n. hydralazine if systolic blood pressure is over 160. 10. FEN: The patient may have a regular unrestricted diet. Electrolytes are overall within normal limits, no need for repletion. No need for fluids at this time. 11. DVT prophylaxis: The patient has a DVT risk score of 3; however, I am not using chemo prophylaxis at this time due to the patient's hematoma of her left gluteus. I will use SCDs for DVT prophylaxis. 12. Code status: The patient is a full code. TIME SPENT: Approximately 50 minutes was spent on this admission, approximately half this time was spent at bedside evaluating the patient and discussing the plan of care. This case has been reviewed by my attending, Dr. Alda Vazquez and she agrees with this plan of care. TONYA OBRIEN [id number]/[facility] #: [id number] [facility] HOSPITALSJohan
[2019-12-18] MEDS: Metoprolol Tartrate TAB* 25 MG PO SCH (20:58)
[2019-12-18] MEDS: Ramipril CAP* 5 MG PO SCH (20:58)
--- NOTE | 2019-12-18 21:02 | CONS ---
CONSULTATION NOTE: DATE OF CONSULT: 12/18/19 HISTORY OF PRESENT ILLNESS: The patient is a very pleasant 89-year-old female who has been recently diagnosed with an L4 fracture in September of 2019. The patient was treated conservatively with brace. The patient was doing quite well until today where she was reported to have a fall in the kitchen. She turned around too quickly and slipped and she hit on a chair. The patient did not lose her consciousness as she reports. She denies any loss of memory. Denies any neck pain, but she still has significant pain the right thoracic rib cage and the back of her left lower extremity. The patient was seen in the emergency room at the request of Dr. Cortez because of CT finding consistent with new T3 superior endplate fracture. The patient denies any weakness, numbness or tingling of her extremities. She was able to ambulate after the fall. She denies any urinary or GI incontinence. She is accompanied by 2 of her friends. PAST MEDICAL HISTORY: 1. Congenital heart disease. 2. Coronary artery disease. 3. Deep venous thrombosis. 4. Hypertension. 5. Heart valvular disease. 6. Hypercholesterolemia. 7. History of pacemaker. 8. Syncope. 9. GERD. 10. Osteoporosis. 11. Cataracts. PAST SURGICAL HISTORY: 1. Left hip replacement. 2. Aortic valve replacement with surgery to replace failed valve. 3. Appendectomy. 4. Gallbladder. 5. Cataract surgery bilaterally. HOME MEDICATIONS: The patient is on Tylenol. ALLERGIES: Cherries. FAMILY HISTORY: Noncontributory. SOCIAL HISTORY: Tobacco, negative. Alcohol, rarely. Recreational drug use, negative. PHYSICAL EXAM: The patient is not in acute distress. She is awake, alert and oriented x3. Her pupils are equal and reactive. Cranial nerves II through XII are grossly intact. Motor 4 to 5/5 in all extremities. Sensory is grossly intact to light touch. Deep tendon reflexes +1 bilaterally. No clonus. No Babinski. Ramona's negative. Straight leg test negative in the supine position. The patient has mild tenderness in the scapular area and the right paraspinal area. She has free range of motion of the cervical spine. DIAGNOSTIC STUDIES/LAB DATA: The patient had a CT scan of the cervical spine that revealed degenerative disk disease without evidence of any fracture or subluxation. The patient had CT of the chest, abdomen and pelvis that revealed a new T3 superior endplate fracture with sclerotic edges and known L4 fracture with very mild progression in the height loss. The T3 fracture was not present on the CT scan of the thoracic spine on 10/03/19. ASSESSMENT: The patient is a very pleasant 89-year-old female with multiple comorbidities including heart disease with a history of L4 fracture with recent fall and newly diagnosed superior endplate fracture of T3. The patient also was diagnosed with minimally displaced right 8th through 10th rib fractures. PLAN: The patient at this point is doing neurologically well. I think that conservative treatment would be the best option for T9 fracture. A TLSO brace will be needed. The patient has already TLSO brace from the previous fracture, but as her friends report she had decided not to wear it. The patient will be kindly admitted to the hospital for further evaluation and pain control by the hospitalist team. We recommend upright thoracic and lumbar x-rays in a brace when able. Thank you for allowing us to participate in the care of this patient. Please do not hesitate to contact our office in case if you have any further questions or concerns in regard to further care of this patient. [id number]/[facility] #: [id number] [place]
[2019-12-18] MEDS: Acetaminophen TAB* 325 MG PO PRN (21:43)
--- NOTE | 2019-12-19 04:29 | PN ---
Progress Note - Progress Note Date of Service: 12/19/19 SOAP: Subjective: []No events ON. Pain is better controlled, Ambulated to bedside commode. Voids. Tolerates PO well Objective: []VSS AAOx3 , DIXON, CN II-XII grossly intact Motor 4-5/5 Sensory grossly intact to light touch Assessment: [] 89 yof fall T3 compression fracture, hx L4 compression fracture Plan: []Monitor VS, Neurochecks TLSO brace Upright TL XR if tolerated. Appreciate IM care. Keny Fine MD
[2019-12-19 05:15] LABS: ABS Basophils 0.1 10^3/ul (0-0.2); ABS Eosinophils 0.1 10^3/ul (0-0.6); ABS Lymphocytes 1.9 10^3/ul (1.0-4.8); ABS Monocytes 0.9 10^3/ul (0-0.8); ABS Neutrophils 3.7 10^3/ul (1.5-7.7); Eosinophil % 1.6 %; Hematocrit 36 % (35-47); Lymphocyte % 28.1 %; Mean Corpuscular HGB Conc 34 g/dL (31-36); Mean Corpuscular Hemoglobin 30 pg (27-31); Mean Corpuscular Volume 88 fL (80-97); Mean Platelet Volume 8.5 fL (7.4-10.4); Platelet Count 727 10^3/uL (150-450); Red Blood Count 4.09 10^6 /uL (3.70-4.87); Red Cell Distribution Width 15 % (10-15); White Blood Count 6.7 10^3/uL (3.5-10.8)
[2019-12-19 05:37] LABS: BUN/Creatinine Ratio 28.8 (8-20); Calcium 9.8 mg/dL (8.6-10.3); EGFR African American 56.3 (>60); EGFR Non-African American 46.5 (>60); Potassium 4.5 mmol/L (3.5-5.0)
[2019-12-19] MEDS: Acetaminophen TAB* 325 MG PO PRN ×2 (07:21→13:44)
[2019-12-19] MEDS: Ketorolac INJ* 30 MG/ML 1 ML VIAL IV PUSH PRN (07:21)
[2019-12-19] MEDS: Cholecalciferol TAB* 1000 UNITS PO SCH (08:37)
[2019-12-19] MEDS: Metoprolol Tartrate TAB* 25 MG PO SCH ×2 (08:37→20:57)
[2019-12-19] MEDS: Ramipril CAP* 5 MG PO SCH (20:57)
--- NOTE | 2019-12-19 20:58 | PN ---
Subjective Date of Service: 12/19/19 Interval History: Patient's pain is well controlled with tylenol only. She mentions she has some numbness in bilateral LEs due to chronic neuropathy which is at baseline and not worsened. She has no bowel/bladder incontinence, chest pain, difficulty breathing, or LE weakness. Objective Active Medications: Acetaminophen (Tylenol Tab*) 650 mg PO Q4H PRN PRN Reason: MILD PAIN or TEMP > 100.4 Last Admin: 12/19/19 13:44 Dose: 650 mg Al Hydrox/Mg Hydrox/Simethicone (Maalox Plus*) 30 ml PO Q6H PRN PRN Reason: INDIGESTION Cholecalciferol (Vitamin D Tab*) 1,000 units PO DAILY [facility] Last Admin: 12/19/19 08:37 Dose: 1,000 units Cyclobenzaprine HCl (Flexeril Tab*) 10 mg PO BID PRN PRN Reason: muscle spasm Last Admin: 12/18/19 15:36 Dose: 10 mg Hydralazine HCl (Apresoline Iv*) 5 mg IV SLOW PU Q6H PRN PRN Reason: SYSTOLIC BP GREATER THAN: Ketorolac Tromethamine (Toradol Inj*) 30 mg IV PUSH Q6H PRN PRN Reason: PAIN - MODERATE Last Admin: 12/19/19 07:21 Dose: 30 mg Metoprolol Tartrate (Lopressor Tab*) 25 mg PO BID [facility] Last Admin: 12/19/19 08:37 Dose: 25 mg Ondansetron HCl (Zofran Inj*) 4 mg IV Q4H PRN PRN Reason: NAUSEA/VOMITING Oxycodone/Acetaminophen (Percocet 5/325 Tab*) 1 tab PO Q4H PRN PRN Reason: PAIN - SEVERE Oxycodone/Acetaminophen (Percocet 5/325 Tab*) 2 tab PO Q4H PRN PRN Reason: breakthrough pain Ramipril (Altace Cap*) 5 mg PO BEDTIME [facility] Last Admin: 12/18/19 20:58 Dose: 5 mg Senna (Senokot 8.6 Mg Tab*) 1 tab PO BID PRN PRN Reason: CONSTIPATION Vital Signs - 8 hr 12/19/19 12/19/19 12/19/19 15:51 19:33 19:53 Temperature 97.8 F 99.4 F Pulse Rate 73 80 Respiratory 18 16 16 Rate Blood Pressure 126/56 112/54 (mmHg) O2 Sat by Pulse 94 92 Oximetry Oxygen Devices in Use Now: None Appearance: Elderly white female, laying upright in bed, appearing in NAD, wearing TLSO brace Eyes: No Scleral Icterus, PERRLA Ears/Nose/Mouth/Throat: Mucous Membranes Moist Neck: Trachea Midline Respiratory: Symmetrical Chest Expansion and Respiratory Effort, Clear to Auscultation Cardiovascular: NL Sounds; No Murmurs; No JVD, RRR Abdominal: - - abd soft, nontender, nondistended Extremities: No Clubbing, Cyanosis, - - trace nonpitting edema to bilateral LEs pretibially Skin: No Rash or Ulcers Neurological: Alert and Oriented x 3, NL Muscle Strength and Tone Result Diagrams: 12/19/19 05:04 12/19/19 05:04 Assess/Plan/Problems-Billing Assessment: 89 yo female with PMHx osteoarthritis, aortic valve disorder, recent L4 compression fracture, HTN, chronic LE edema, and pAfib presents after a fall, found to have new lumbar compression fracture and left gluteus hematoma. - Patient Problems (1) Fall Current Visit: Yes Status: Acute Comment: -mechanical fall at home related to incorrect walker use -PT/OT involved (2) Compression fracture of L3 vertebra Current Visit: Yes Status: Acute Code(s): S32.030A - WEDGE COMPRESSION FRACTURE OF THIRD LUMBAR VERTEBRA, INIT SNOMED Code(s): 723802024 Comment: -prior L4 compression fracture now with retropulsion; L3 compression fracture new since this fall -Appreciate Dr. Fine' consult -continue TLSO brace -awaiting report from upright thoracic and lumbar x-rays -conservative mgmt per Dr. Fine; continue pain control (3) HTN (hypertension) Current Visit: No Status: Acute Code(s): I10 - ESSENTIAL (PRIMARY) HYPERTENSION SNOMED Code(s): 43414019 Comment: - Stable on raipril and metoprolol (4) Hematoma Current Visit: Yes Status: Acute Code(s): T14.8XXA - OTHER INJURY OF UNSPECIFIED BODY REGION, INITIAL ENCOUNTER SNOMED Code(s): 113592530 Comment: -left gluteus hematoma s/p fall -H&H intact, will continue to monitor (5) History of aortic valve replacement Current Visit: No Status: Acute Code(s): Z95.2 - PRESENCE OF PROSTHETIC HEART VALVE SNOMED Code(s): 3954102417431 Comment: - Bioprosthetic, no AC - Stable (6) Paroxysmal A-fib Current Visit: Yes Status: Acute Code(s): I48.0 - PAROXYSMAL ATRIAL FIBRILLATION SNOMED Code(s): 210980893 Comment: -continue metoprolol (7) DVT prophylaxis Current Visit: Yes Status: Acute Code(s): Z29.9 - ENCOUNTER FOR PROPHYLACTIC MEASURES, UNSPECIFIED SNOMED Code(s): 523135618 Comment: -no chemical ppx d/t hematoma -SCDs (8) Patient is full code Current Visit: No Status: Acute Priority: High Onset Date: 08/31/15 Code (s): Z78.9 - OTHER SPECIFIED HEALTH STATUS SNOMED Code(s): 111364693 Status and Disposition: patient homes to go home at discharge with increased visiting services
[2019-12-20] MEDS: Ketorolac INJ* 30 MG/ML 1 ML VIAL IV PUSH PRN ×2 (03:46→14:45)
[2019-12-20 04:45] LABS: Hematocrit 38 % (35-47); Hemoglobin 12.5 g/dL (12.0-16.0); Mean Corpuscular HGB Conc 33 g/dL (31-36); Mean Corpuscular Hemoglobin 29 pg (27-31); Mean Corpuscular Volume 88 fL (80-97); Mean Platelet Volume 8.6 fL (7.4-10.4); Platelet Count 763 10^3/uL (150-450); Red Blood Count 4.32 10^6 /uL (3.70-4.87); Red Cell Distribution Width 15 % (10-15); White Blood Count 7.1 10^3/uL (3.5-10.8)
[2019-12-20] MEDS: Cholecalciferol TAB* 1000 UNITS PO SCH (09:21)
[2019-12-20] MEDS: Acetaminophen TAB* 325 MG PO PRN (09:21)
[2019-12-20] MEDS: Metoprolol Tartrate TAB* 25 MG PO SCH (09:21)
[2019-12-20 11:41] VITALS: BP 144/65
--- NOTE | 2019-12-20 13:07 | DS ---
CC: Dr. Blevins; Dr. Fine; Dr. Monica Jewell * DISCHARGE SUMMARY: DATE OF ADMISSION: 12/18/19 DATE OF DISCHARGE: 12/20/19 PRIMARY CARE PROVIDER: Dr. Blevins. OTHER PROVIDER: Dr. Fine. ATTENDING PROVIDER: Dr. Monica Jewell * (dictated by TONYA Olivera). PRIMARY DIAGNOSES: 1. T3 compression fractures; interval worsening of L4 compression fracture. 2. Right rib fracture 8 through 10. 3. Left gluteus hematoma. 4. Hypercalcemia. STUDIES WHILE IN THE HOSPITAL: 1. Left femur, impression: Osteopenia with no displaced fracture, status post left hip ORIF. 2. Left hip and pelvis, impression: Osteopenia with no displaced fracture identified, status post left hip ORIF. 3. Right ribs, PA chest, impression: Increased soft tissue attenuation in the apex of the right hemithorax. An underlying neoplasm is not excluded. Minimally displaced right 7th through 9th rib fractures with no large pneumothorax. Postoperative changes. Linear bilateral mid lung zone airspace opacification (atelectasis is favored). 4. CT chest, abdomen, and pelvis with contrast, impression: Redundant and tortuous appearance of the innominate artery and its proximal branching vessels accounts for the right apical density on recent chest radiograph. No lung mass identified. Minimally displaced right 8th through 10th rib fractures. Sclerotic appearing T3 compression fracture resulting in 10% vertebral body height loss. No bony retropulsion. Sclerotic L4 compression fracture with progressive 50% vertebral body height loss and moderate bony retropulsion. A fusiform abdominal aortic aneurysm measures up to 4.2 cm. A left gluteal subcutaneous soft tissue density measures up to 4.8 cm. In the context of trauma, this may be telephone claims representative of a hematoma. If clinically equivocal, follow up with targeted ultrasound. There is a 1-cm nodule in the right lobe of the thyroid. Mild cardiomegaly, status post AVR. 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 5. T-spine x-ray, impression: The previously noted mild compression fracture of the superior endplate of the T3 vertebral body is not well visualized on this study. 6. Lumbar x-ray, impression: Moderate compression fracture of the L4 vertebral body as described. CONSULTATIONS WHILE IN THE HOSPITAL: Neurosurgery. This patient is a very pleasant 89-year-old female with multiple comorbidities including heart disease with a history of L4 fracture with recent fall and newly diagnosed superior endplate fracture of T3. The patient also was diagnosed with minimally displaced right 8th through 10th rib fractures. The patient doing well neurologically. Conservative treatment would be the best option for fracture. TLSO brace will be needed. She has a TLSO brace from previous fracture. She has been admitted to the hospital for further evaluation and pain control. Recommend upright thoracic and lumbar x-rays in a brace. DISCHARGE MEDICATIONS: Home medications: 1. Acetaminophen 1000 mg p.o. q.6 hours p.r.n. 2. Aspirin 325 mg p.o. daily. 3. Cholecalciferol 1000 units p.o. daily. 4. Metoprolol tartrate 25 mg p.o. b.i.d. 5. Ramipril 5 mg p.o. at bedtime. New home medications: 1. Cyclobenzaprine 10 mg p.o. b.i.d. p.r.n. muscle spasm. 2. Percocet q.6 hours p.r.n. severe pain. HISTORY OF PRESENT ILLNESS/HOSPITAL COURSE: Ms. Case is an 89-year-old female with past medical history of hypertension; paroxysmal atrial fibrillation , not on anticoagulation; chronic lower extremity edema; history of L4 compression fracture in September 2019, status post fall, who presented to the ER on 12/18/19 after a fall at home. For full and complete details, please see the history and physical dictated by TONYA Obrien, but in short, the patient presents after a fall at home. Shortly after the fall, she complained of pain in the buttocks, right thoracic pain and low back pain. In the ER, imaging was done and the patient was found to have a T3 compression fracture and worsening L4 compression fracture. Dr. Fine was consulted and recommended TLSO bracing which was applied. The patient received imaging while in the brace and these were deemed to be satisfactory by Neurosurgery. The patient will follow up with Neurosurgery. She will wear the brace whenever out of bed, although she is not required to wear the brace while in bed. She will continue physical therapy and occupational therapy. She was assessed by Physical Therapy and Occupational Therapy and they recommended subacute rehab, although the patient declines. She states she would prefer to go home. Prior to discharge, she has been placed with VNS as well as physical therapy at home. Again, she declined subacute rehab despite recommendations for this. She has the capacity to make this decision. The patient has right rib fractures as well as a left gluteal hematoma. There is no hemothorax on imaging. The patient's gluteal hematoma is likely secondary to falling, but should continue to be followed in the outpatient setting. The patient was also noted to have hypercalcemia on admission. SPEP and UPEP were ordered and are still pending. These should be followed by her primary care provider. Incidentally, a thyroid nodule was noted on imaging. This should be followed outpatient. Prior to discharge, discussion was had about pain management. The patient continues to have pain. She feels that her pain is rated at 9/10 now and she states that she woke with the pain that she describes as throbbing in the lumbar area. She denies saddle anesthesia, bowel or bladder incontinence. She walks with a walker at home and will continue to use a walker in the outpatient setting. She will continue to wear her TLSO brace. In terms of pain management, the patient reports that Tylenol does not help with her pain. She will be discharged with a perscription for Percocet and will follow with her primary care provider for further pain management concerns. Ms. Case is stable for discharge to home. PHYSICAL EXAMINATION: Vital signs: Temperature 98.6 oral, heart rate 80, respiratory rate 16, oxygen saturation 92% on room air, blood pressure 123/65. General: Ms. Case is a well-developed, well-nourished, elderly white woman , who is sitting up in bed. She has her TLSO brace in place. She appears mildly uncomfortable, but is pleasant and cooperative. HEENT: PERRL. EOMI. Visual bearden grossly intact. Sclerae nonicteric without injection. Hearing is grossly intact. Oral mucous membranes are moist. There are no lesions. Pharynx is clear. The tongue is at midline. The palate elevates symmetrically. Cardiovascular: Regular rate and rhythm with S1, S2 present. No murmurs, rubs , clicks, or gallops. There is no JVD. There is bilateral lower extremity edema , 1 to 2+ pitting, which is chronic. Pulmonary: Symmetrical chest expansion without use of accessory muscles. Clear to auscultation bilaterally. No rhonchi, wheeze, or rales. Abdomen: Bowel sounds in all quadrants. Soft, nontender to palpation. Musculoskeletal: TLSO brace is in place. The patient moves gingerly with a mild amount of pain. There is an ecchymotic area to the left buttock. The patient is able to move all of her extremities. Neuro: The patient is awake. She is alert and oriented x3. Cranial nerves II through XII are grossly intact. She moves all of her extremities. Her motor strength is 5/ 5 bilaterally in the upper and lower extremities. Sensation is intact to bilateral lower extremities. DISCHARGE PLANNING: Ms. Case will be discharged to home with visiting nursing services. CONDITION: Fair, stable. DIET: Heart healthy. ACTIVITY: 1. No heavy lifting. 2. Wear TLSO brace whenever sitting, out of bed, or standing. No need to wear brace when lying down. 3. Continue to work with PT/OT. MEDICATIONS: 1. Continue pain management with Tylenol and as needed Percocet EDUCATION: 1. Follow up with primary care provider in 4 to 7 days. Discuss recent hospitalization, incidental findings on imaging (abdominal aortic aneurysm, right thyroid nodule), SPEP/UPEP results. 2. Follow up with Dr. Fine as scheduled. 3. Please return to the ER or nearest hospital if you experience loss of bowel or bladder function, fevers, chills, severe back pain, lower extremity weakness/ numbness/tingling. Return for chest pain or discomfort, shortness of breath, high fevers, chills, night sweats, dizziness, lightheadedness, loss of consciousness. This is a summarized report of a complex medical history and hospital stay. For further details, please see the entire medical record. TIME SPENT: Approximately 35 minutes was spent on this discharge, greater than half that time was spent [id number] with the patient discussing discharge plans, and instructions. TONYA FELIPE [id number]/[facility] #: [id number] QUIQUE
[2019-12-22 11:27] LABS: Albumin 3.4 g/dL (3.4-4.7); Albumin/Globulin Ratio 1.02; Gamma Globulin 1.2 g/dL (0.6-1.6); Total Protein(PEP) 6.7 g/dL (6.3 - 7.9)
== END 2019-12-20 15:45 | disposition home or self-care (01) ==
LOC: ED 10:58 → SSU 14:58
PROVIDERS: ADMIT Internal Medicine; ATTEND Internal Medicine
DX: S22.41XA Multiple fractures of ribs, right side, initial encounter for closed fracture (principal); S22.039A Unspecified fracture of third thoracic vertebra, initial encounter for closed fracture; S32.049A Unspecified fracture of fourth lumbar vertebra, initial encounter for closed fracture; S30.0XXA Contusion of lower back and pelvis, initial encounter; E86.0 Dehydration; I71.4 Abdominal aortic aneurysm, without rupture; E04.1 Nontoxic single thyroid nodule; I48.0 Paroxysmal atrial fibrillation; I11.9 Hypertensive heart disease without heart failure; E83.52 Hypercalcemia; R60.9 Edema, unspecified; M19.90 Unspecified osteoarthritis, unspecified site; Q24.9 Congenital malformation of heart, unspecified; I38 Endocarditis, valve unspecified; K21.9 Gastro-esophageal reflux disease without esophagitis; E78.00 Pure hypercholesterolemia, unspecified; R55 Syncope and collapse; W19.XXXA Unspecified fall, initial encounter; Y92.000 Kitchen of unspecified non-institutional (private) residence as the place of occurrence of the external cause; Z79.82 Long term (current) use of aspirin; Z79.899 Other long term (current) drug therapy; Z96.642 Presence of left artificial hip joint; Z95.2 Presence of prosthetic heart valve; Z86.718 Personal history of other venous thrombosis and embolism; Z88.6 Allergy status to analgesic agent; Z87.891 Personal history of nicotine dependence
CPT/HCPCS: 36415; 71260; 72070; 72100; 72125; 74177; 80048; 80053; 81003; 84155; 84156; 84165; 84166; 85025; 85027; 86140; 96374; 96375; 96376; 99284; A9270-GY; G0378; J1885; Q9967